=== PATIENT | male | born 1955 | race Caucasian/White ===

== ENCOUNTER 2018-05-03 13:35 | Inpatient (IN) ==
[2018-05-03] MEDS ORDERED: IOPAMIDOL 100 ML BOTTLE IV ONE (13:36)
[2018-05-03] MEDS ORDERED: 0.9 % SODIUM CHLORIDE 1,000 ML IV ONE (14:01)
[2018-05-03] MEDS ORDERED: INSULIN REGULAR, HUMAN 1 UNIT/0.01 ML UNIT IV ONE (14:26)
[2018-05-03] MEDS ORDERED: INSULIN REGULAR, HUMAN 50 UNIT in 0.9 % SODIUM CHLORIDE 99.5 ML IV SCH (15:00)
[2018-05-03 15:11] LABS: Basophils # (Auto) 0 K/mcL (0.0-0.3); Basophils % (Auto) 0 % (0.0-2.0); Eosinophils # (Auto) 0 K/mcL (0.0-0.7); Eosinophils % (Auto) 0.1 % (0.0-7.0); Lymphocytes # (Auto) 1.1 K/mcL (1.5-4.8); Lymphocytes % (Auto) 9.7 % (15.5-49.0); Mean Cell Volume 98.6 fL (80.0-100.0); Mean Corpuscular HGB Conc 32.3 g/dL (31.0-36.0); Mean Corpuscular Hemoglobin 31.8 pg (26.0-34.0); Monocytes # (Auto) 0.5 K/mcL (0.1-0.9); Monocytes % (Auto) 4.2 % (1.0-12.0); Platelet Count 251 K/mcL (140-440); RBC 4.48 M/mcL (4.50-5.90)
[2018-05-03 15:29] LABS: Beta Hydroxybutyrate 0.14 mmol/L (< 0.27)
[2018-05-03 15:41] LABS: ALT/SGPT 24 U/l (0-40); Albumin 3.1 gm/dL (3.2-5.2); Albumin/Globulin Ratio 1.1 (1.0-2.3); Alkaline Phosphatase 208 U/L (39-117); Blood Urea Nitrogen 36 mg/dl (8-23)
[2018-05-03] MEDS: 0.9 % SODIUM CHLORIDE 1,000 ML IV SCH ×2 (15:53→22:47)
[2018-05-03 16:28] LABS: Appearance,Urine CLEAR; Bacteria,Urine 0 /hpf (0); Bilirubin,Urine NEG (NEG); Color,Urine STRAW; Glucose,Urine (UA) >=500 mg/dL (NEG); Leukocyte Esterase,Urine NEG /uL (NEG); Protein,Urine NEG (NEG); Specific Gravity,Urine 1.018 (1.000-1.035); Urine Blood 0.2 mg/dL (<0.03); Urine RBC 2 /hpf (0-1); Urine Squamous Epithelial Cell 0 /hpf (0-4); Urine WBC 5 /hpf (0-4); Urobilinogen,Urine NEG (NEG)
--- NOTE | 2018-05-03 16:46 | Cat Scan Report ---
History: Shortness of breath severe weight loss, weakness and clubbing. TECHNIQUE: The patient was imaged following oral contrast and 50 cc of Isovue-300 contrast intravenously. Portal venous phase images were acquired from the chest through the symphysis pubis. Sagittal, coronal and MIPS images were created. Radiation exposure was limited using dose reduction technology. The patient was hydrated before and after the exam. FINDINGS: CHEST: There is severe reticulation of the lung parenchyma bilaterally with multiple tiny bulla and honeycombing throughout both lungs. The greatest involvement is in the periphery of the lungs, especially in the lung bases. There is significant thickening of the interlobular septa. Interspersed with the honeycombing and septal thickening there are few ill-defined nodular densities which measure up to 4 mm in size. No dominant mass is seen in either lung. There is no lobar consolidation. Traction bronchiectasis is present bilaterally, most apparent in the lower lobes. No intrabronchial lesion is seen. There is no pleural effusion. There are couple lymph nodes in the mediastinum. Largest is located anterior to the malinda and measures 9 x 14 mm. The heart is normal in size. There are couple scattered plaques in the coronary arteries. The aorta is normal caliber and also has mild atherosclerosis. Abdomen and pelvis The liver is mildly heterogeneous and the capsule may be slightly lobulated. No mass is identified within the liver. There is normal opacification of the portal vein. The gallbladder and bile ducts are normal. The spleen is surgically absent. There is significant atrophy of the pancreas. Pancreatic duct is dilated and measures up to 1.2 cm. Numerous coarse calcifications are present in the head and body of the pancreas due to chronic pancreatitis. There is no evidence of acute pancreatitis and no pancreatic neoplasm is seen. The adrenals are normal. There are multiple nonobstructing kidney stones within the calyces bilaterally. Largest is in the upper pole the right kidney and measures 5 x 9 mm. No hydronephrosis is present. There is no evidence of renal mass, cyst or pyelonephritis. Moderate amount calcified plaque is present along the wall of the aorta and iliac arteries. The oral contrast has passed through stomach and small bowel to the distal ileum without obstruction. There is a large amount stool within colon. The colon is not abnormally distended and there is no evidence of diverticulitis.. The urinary bladder is unopacified but grossly normal. The prostate is obscured by beam hardening artifact created by left middle hip prosthesis. There are multiple compression fractures in the thoracic and lumbar spine and the bones are diffusely osteoporotic. IMPRESSION: Severe fibrosis throughout both lungs. The pattern is associated with usual interstitial pneumonia/idiopathic pulmonary fibrosis. Chronic pancreatitis. Multiple bilateral nonobstructing kidney stones Mildly heterogeneous liver. This could be due to early phase imaging before the contrast had equilibrated with liver parenchyma or mild hepatocellular disease such as cirrhosis/hepatitis. Cristiana Lafleur was called with the results Interpreted and Authenticated by: Carloz Mercado 05/03/18
--- NOTE | 2018-05-03 16:47 | Emergency Department Note ---
General Adult HPI - General Chief complaint: Blood Pressure Problem Stated complaint: Low BP, Falls, Near Syncope Time Seen by Provider: 05/03/18 13:39 Source: patient, family Mode of arrival: wheelchair Limitations: no limitations - History of Present Illness HPI Narrative: 63-year-old male presents with generalized weakness, dizziness, and believes he is dehydrated. He has a few episodes of nausea and vomiting yesterday. He continues to be nauseated but has not vomited since yesterday morning. No diarrhea or constipation. No fever or chills. He has lost a considerable amount of weight in the last year and his daughter thinks he is last more in the last month or 2. They also state that he is having an EGD and colonoscopy on May 06 or over at [facility]. They wanted to rule out any kind of cancer due to his weight loss over the last year. He also gets recurrent nausea and vomiting. He did have a CT scan of the chest abdomen and pelvis back in March which showed chronic pancreatitis and kidney stones which were known. He does arrive with a blood sugar reading high today. He states he always runs high because of his chronic pancreatitis but is never usually this high. No cough or cold symptoms. No fever or chills. Associated symptoms: Reports: loss of appetite, malaise, nausea/vomiting, shortness of breath. Denies: chest pain, cough, diaphoresis, fever/chills, headaches, rash, syncope, weakness Treatments Prior to Arrival: none - Related Data Home Medications Medication Instructions Recorded Confirmed Fluticasone/Salmeterol [Advair 1 puff INH DAILY 08/29/15 12/22/16 250-50 Diskus] Insulin Glargine, Human [Lantus] 18 unit SQ DAILY 08/29/15 12/22/16 Celecoxib [Celebrex] 50 mg PO DAILY 12/22/16 12/22/16 Tamsulosin [Flomax] 0.4 mg PO HS 12/22/16 12/22/16 Previous Rx's Medication Instructions Recorded traMADol [Ultram] 50 mg PO Q6HP PRN #15 tablet 11/14/15 Levofloxacin [Levaquin] 750 mg PO DAILY #6 tab 07/22/17 Ondansetron HCl [Zofran ODT] 4 mg SL Q4-6HP PRN #14 tab 12/13/17 Allergies Allergy/AdvReac Type Severity Reaction Status Date / Time codeine Allergy Unknown Rash Verified 11/14/15 16:06 Review of Systems All systems ED: reviewed and negative except as stated. Past Medical History - Past Medical History [facility] Narrative: Medical History Right knee gives way (Acute) Sprain of medial collateral ligament of right knee, initial encounter (Acute) Dehydration (Acute) Medical history: Reports: arthritis, asthma, COPD, DM, other Surgical history ED: Reports: hip replacement, splenectomy - Social History smoking status: Current every day smoker Alcohol use: Reports: None Drug use: Reports: none Physical Exam Limitations: no limitations General appearance: alert, cachectic, other (thin and fragile appearing) Head: atraumatic, normocephalic, normal inspection Eye: Present: normal appearance. Absent: conjunctival injection Neck: Present: normal inspection, trachea midline. Absent: tenderness, lymphadenopathy Chest: Present: symmetric chest wall rise Respiratory: Present: other (dimished bases bilat). Absent: respiratory distress, rales/crackles, accessory muscle use Cardiovascular: Present: regular rate, normal heart sounds Abdominal: Present: soft, normal bowel sounds. Absent: distention, guarding Neurological: Present: alert, oriented X3 Psychiatric: Present: normal affect, normal mood Skin: Present: warm, dry, intact, normal color Course Course Narrative: @ 1704 I spoke with hospitalist Dr. Deng who agrees to accept this patient Vital Signs Temperature 97.0 F 05/03/18 13:37 Pulse Rate 80 05/03/18 13:37 Respiratory Rate 18 05/03/18 13:37 Blood Pressure 97/61 05/03/18 13:37 Pulse Oximetry (%) 97 05/03/18 13:37 Temperature 97.0 F 05/03/18 13:37 Pulse Rate 65 05/03/18 17:01 Respiratory Rate 11 L 05/03/18 17:01 Blood Pressure 121/79 05/03/18 17:01 Pulse Oximetry (%) 98 05/03/18 17:01 Medical Decision Making - Lab Data Lab results reviewed: Yes I reviewed the patient's lab results. Result diagrams: 05/03/18 14:16 05/03/18 14:16 Lab Results 05/03/18 05/03/18 05/03/18 Range/Units 14:15 14:16 14:16 WBC 11.8 H (4.5-11.0) K/mcL RBC 4.48 L (4.50-5.90) M/mcL Hgb 14.3 (13.5-16.5) g/dL Hct 44.2 (41.0-55.0) % POC Hct 46.0 (41.0-55.0) % MCV 98.6 (80.0-100.0) fL MCH 31.8 (26.0-34.0) pg MCHC 32.3 (31.0-36.0) g/dL RDW 13.0 (11.5-14.5) % Plt Count 251 (140-440) K/mcL MPV 9.8 (7.4-10.4) fL Gran % 86.0 H (38.0-78.0) % Lymph % (Auto) 9.7 L (15.5-49.0) % Andrews % (Auto) 4.2 (1.0-12.0) % Eos % (Auto) 0.1 (0.0-7.0) % Baso % (Auto) 0 (0.0-2.0) % Gran # 10.1 H (1.8-8.0) K/mcL Lymph # (Auto) 1.1 L (1.5-4.8) K/mcL Andrews # (Auto) 0.5 (0.1-0.9) K/mcL Eos # (Auto) 0 (0.0-0.7) K/mcL Baso # (Auto) 0 (0.0-0.3) K/mcL VBG Lactic Acid (0.5-2.0) mmol/L POC Sodium 122 L (133-145) mmol/L Sodium 120 L (133-145) mmol/L POC Potassium 5.0 (3.3-5.1) mmol/L Potassium 5.4 H (3.3-5.1) mmol/L POC Chloride 86 L (96-108) mmol/L Chloride 82 L (96-108) mmol/L Carbon Dioxide 21 L (22-30) mmol/L POC Total CO2 22 (22-30) mmol/L Anion Gap 17.0 H (8-16) POC BUN 36 H (8-23) mg/dl BUN 36 H (8-23) mg/dl Creatinine 1.6 H (0.7-1.2) mg/dl POC Creatinine 1.4 H (0.7-1.2) mg/dl GFR Calculation 46 Glucose 1063 H* (70-105) mg/dL POC Glucose > 700 H* (70-105) mg/dL Calcium 8.3 L (8.6-10.4) mg/dl POC WB Ioniz Calcium 1.10 L (1.16-1.32) mmol/L Total Bilirubin 0.3 (0.0-1.0) mg/dL AST 12 (0-37) U/l ALT 24 (0-40) U/l Alkaline Phosphatase 208 H (39-117) U/L Total Protein 5.9 (5.9-8.4) gm/dL Albumin 3.1 L (3.2-5.2) gm/dL Globulin 2.8 (2.2-3.7) gm/dL Albumin/Globulin Ratio 1.1 (1.0-2.3) Beta-Hydroxybutyrate 0.14 (< 0.27) mmol/L Urine Color Urine Appearance Urine pH (5.0-9.0) Ur Specific [place] (1.000-1.035) Urine Protein (NEG) mg/dL Urine Glucose (UA) (NEG) mg/dL Urine Ketones (NEG) mg/dL Urine Occult Blood (<0.03) mg/dL Urine Nitrate (NEG) Urine Bilirubin (NEG) mg/dL Urine Urobilinogen (NEG) mg/dL Ur Leukocyte Esterase (NEG) /uL Urine RBC (0-1) /hpf Urine WBC (0-4) /hpf Ur Squamous Epith Cells (0-4) /hpf Urine Bacteria (0) /hpf Ur Culture Indicated? 05/03/18 05/03/18 Range/Units 14:16 15:45 WBC (4.5-11.0) K/mcL RBC (4.50-5.90) M/mcL Hgb (13.5-16.5) g/dL Hct (41.0-55.0) % POC Hct (41.0-55.0) % MCV (80.0-100.0) fL MCH (26.0-34.0) pg MCHC (31.0-36.0) g/dL RDW (11.5-14.5) % Plt Count (140-440) K/mcL MPV (7.4-10.4) fL Gran % (38.0-78.0) % Lymph % (Auto) (15.5-49.0) % Andrews % (Auto) (1.0-12.0) % Eos % (Auto) (0.0-7.0) % Baso % (Auto) (0.0-2.0) % Gran # (1.8-8.0) K/mcL Lymph # (Auto) (1.5-4.8) K/mcL Andrews # (Auto) (0.1-0.9) K/mcL Eos # (Auto) (0.0-0.7) K/mcL Baso # (Auto) (0.0-0.3) K/mcL VBG Lactic Acid 5.2 H* (0.5-2.0) mmol/L POC Sodium (133-145) mmol/L Sodium (133-145) mmol/L POC Potassium (3.3-5.1) mmol/L Potassium (3.3-5.1) mmol/L POC Chloride (96-108) mmol/L Chloride (96-108) mmol/L Carbon Dioxide (22-30) mmol/L POC Total CO2 (22-30) mmol/L Anion Gap (8-16) POC BUN (8-23) mg/dl BUN (8-23) mg/dl Creatinine (0.7-1.2) mg/dl POC Creatinine (0.7-1.2) mg/dl GFR Calculation Glucose (70-105) mg/dL POC Glucose (70-105) mg/dL Calcium (8.6-10.4) mg/dl POC WB Ioniz Calcium (1.16-1.32) mmol/L Total Bilirubin (0.0-1.0) mg/dL AST (0-37) U/l ALT (0-40) U/l Alkaline Phosphatase (39-117) U/L Total Protein (5.9-8.4) gm/dL Albumin (3.2-5.2) gm/dL Globulin (2.2-3.7) gm/dL Albumin/Globulin Ratio (1.0-2.3) Beta-Hydroxybutyrate (< 0.27) mmol/L Urine Color Straw Urine Appearance Clear Urine pH 6.0 (5.0-9.0) Ur Specific [place] 1.018 (1.000-1.035) Urine Protein Neg (NEG) mg/dL Urine Glucose (UA) >=500 A (NEG) mg/dL Urine Ketones Neg (NEG) mg/dL Urine Occult Blood 0.2 A (<0.03) mg/dL Urine Nitrate Neg (NEG) Urine Bilirubin Neg (NEG) mg/dL Urine Urobilinogen Neg (NEG) mg/dL Ur Leukocyte Esterase Neg (NEG) /uL Urine RBC 2 H (0-1) /hpf Urine WBC 5 H (0-4) /hpf Ur Squamous Epith Cells 0 (0-4) /hpf Urine Bacteria 0 (0) /hpf Ur Culture Indicated? Yes - Radiology Data Radiology results reviewed: Yes I reviewed the patient's radiology results. Disposition Pt seen by [employer]LE[employer] INSTRUCTOR/PA only: No Clinical Impression: Hyperglycemia, Dehydration, Failure to thrive in adult Disposition: Xfer As Inpt ([facility]) Condition: Fair Referrals: Radha Bliss MD [Primary Care Provider] -
--- NOTE | 2018-05-03 17:17 | Internal Med History&Physical ---
Medical - H&P: [facility] Patient information: Note initiated : 05/03/18 at 5:14 pm Service Date, if different from initiated Date: [] Patient: Solomon Mercado a 63 y/o M admitted on for Low BP, Falls, Near Syncope. Chief Complaint: [] Chief complaint: Nausea, Low blood pressure, Dizziness History of present illness: Mr. Mercado is a 63 year old M with a history of smoking/reactive airway disease and DM type II who has been progressively getting weaker and has lost over 40 pounds in the last year. He has been evaluated by his primary care physician without any identifiable cause. He is due for upper and lower endoscopy May 06. However this morning after he woke up he was extremely dizzy weak and subsequently fell down. He struggled for the next 3 hours until he was discovered by his niece and was subsequently [facility]. Initial workup in the ER was significant for blood pressure in 70s along with elevated lactic acid and blood sugar over 1000. Patient was started on insulin drip/crystalloids. Systolics improved to mid 80s. Hospice service was consulted in light of hypovolemic shock. Abdominal imaging was unremarkable except for chronic pancreatitis/bilateral coronary fibrosis/interstitial pneumonia. Hospitalist service was consulted for admission light of above At the time of evaluation patient is accompanied with his significant other and niece. Most of the history is obtained review of medical records and from patient. Solomon is feeling a lot better after fluid boluses. He denies chest pain fever diarrhea, change in stool caliber. Denies lumps or growths on his skin. He denies shortness of breath chest pain productive sputum but endorses to progressive nausea over the last few days. He denies abdominal pain. Review of systems 10 point review system was performed and is negative except one discussed above Medical - H&P: PMH Medical history: DM-II Weight loass C/C pancreatitis AsthmaCOPD Arthritis Surgical history: hip replacement splenectomy Social history: Daily smoker half pack Lives alone Medical - H&P: Meds Home Medications Medication Instructions Recorded Confirmed Type Fluticasone/Salmeterol [Advair 2 puff INH BID 08/29/15 05/03/18 History 250-50 Diskus] traMADol [Ultram] 50 mg PO Q6HP PRN #15 tablet 11/14/15 05/03/18 Rx Celecoxib [Celebrex] 50 mg PO HS 12/22/16 05/03/18 History Tamsulosin [Flomax] 0.4 mg PO HS 12/22/16 05/03/18 History DULoxetine HCL [Cymbalta] 60 mg PO HS 05/03/18 05/03/18 History Gabapentin [Neurontin] 600 mg PO TID 05/03/18 05/03/18 History Allergies Allergy/AdvReac Type Severity Reaction Status Date / Time codeine AdvReac Intermediate Rash Verified 05/04/18 06:12 Medical - H&P: Exam - Constitutional Vitals: Temp Pulse Resp BP Pulse Ox 97.0 F 65 11 L 121/79 98 05/03/18 13:37 05/03/18 17:01 05/03/18 17:01 05/03/18 17:01 05/03/18 17:01 Alert oriented Cachectic Eye movement symmetric Oral cavity dry no ear nose discharge Head normocephalic Neck no lymphadenopathy S1-S2 regular rhythm Diminished breath sounds bases/crackles Abdomen soft nontender Lower 3 no sinus clubbing no joint swelling Skin mild pallor but no suspicious lesion Psych alert cooperative no anxiety Neuro nonfocal moving all 4 extremities, normal heart function General appearance: disheveled, thin Medical - H&P: Reslt - Labs CBC & Chem 7: 05/04/18 05:41 05/04/18 05:41 Labs: Short CBC 05/03/18 Range/Units 14:16 WBC 11.8 H (4.5-11.0) K/mcL Hgb 14.3 (13.5-16.5) g/dL Hct 44.2 (41.0-55.0) % Plt Count 251 (140-440) K/mcL [facility] 05/03/18 14:16 Sodium 120 L Potassium 5.4 H Chloride 82 L Carbon Dioxide 21 L BUN 36 H Creatinine 1.6 H Glucose 1063 H* Calcium 8.3 L Liver Function 05/03/18 Range/Units 14:16 Total Bilirubin 0.3 (0.0-1.0) mg/dL AST 12 (0-37) U/l ALT 24 (0-40) U/l Alkaline Phosphatase 208 H (39-117) U/L Albumin 3.1 L (3.2-5.2) gm/dL Urine 12/03/18 Range/Units 15:45 Urine Color Straw Urine Appearance Clear Urine pH 6.0 (5.0-9.0) Ur Specific [place] 1.018 (1.000-1.035) Urine Protein Neg (NEG) mg/dL Urine Glucose (UA) >=500 A (NEG) mg/dL Medical - H&P: A/P (1) Hypovolemic shock Current visit: Yes Status: Acute * Hypovolemic shock-secondary to volume depletion. Multiple endorgan dysfunction noted. Start aggressive treatment with crystalloid boluses/ pressors as indicated. Admit to ICU * Diabetic hyperosmolar state with early DKA- started on insulin drip. Transition to subcutaneous insulin/diabetic diet once resolved * Hypovolemic hyponatremia-glucose corrected 132 * Acute kidney injury-likely secondary to volume depletion. Follow renal function * Severe cachexia/weight loss-nutrition consult * Neuropathy continue gabapentin * BPH continue tamsulosin * Anxiety disorder continue duloxetine * History of COPD continue Advair * Full code * Prophylaxis heparin Plan * Admit to ICU, inpatient admission in light of hypovolemic shock * Continue aggressive crystalloids * Monitor renal function * Every 6 venous lactate * Prior medical issue management as above * Diabetic diet/nutrition consult Total time spent on history and physical over 70 minutes. In addition over 35 minutes spent on coordinating care/hypovolemic shock management, transferring to ICU and treatment changes over the course of the day
[2018-05-03] MEDS ORDERED: ONDANSETRON 4 MG/2 ML VIAL IV PRN (19:16)
[2018-05-03] MEDS ORDERED: 0.9 % SODIUM CHLORIDE 1,000 ML IV SCH (19:16)
[2018-05-03] MEDS ORDERED: POTASSIUM CHLORIDE 20 MEQ/15 ML ML PT SCH (19:16)
[2018-05-03] MEDS ORDERED: PANTOPRAZOLE 40 MG VIAL IV ONE (19:16)
[2018-05-03] MEDS ORDERED: PROMETHAZINE 25 MG/ML VIAL IV PRN (19:16)
[2018-05-03] MEDS ORDERED: NOREPINEPHRINE BITARTRATE 16 MG in 0.9 % SODIUM CHLORIDE 234 ML IV SCH (19:16)
[2018-05-03] MEDS ORDERED: MAGNESIUM SULFATE 2 GM/50 ML BAG IV PRN (19:16)
[2018-05-03] MEDS ORDERED: ACETAMINOPHEN 325 MG TABLET PO PRN (19:16)
[2018-05-03] MEDS ORDERED: DEXTROSE 31 GM ORAL.SUSP PO PRN (19:16)
[2018-05-03] MEDS ORDERED: DEXTROSE 50% 50 ML VIAL IV PRN (19:16)
[2018-05-03] MEDS ORDERED: ACETAMINOPHEN IV PRN (19:16)
[2018-05-03] MEDS: LACTATED RINGERS 1,000 ML IV SCH (19:38)
[2018-05-03] MEDS: 0.9 % SODIUM CHLORIDE 250 ML IV SCH (19:56)
[2018-05-03 20:50] LABS: C-Reactive Protein < 0.3 mg/dl (0.0-0.8)
[2018-05-03] MEDS: POTASSIUM CHLORIDE 20 MEQ/15 ML ML PO SCH (20:55)
[2018-05-03] MEDS ORDERED: SENNOSIDES/DOCUSATE SODIUM 1 TAB TABLET PO SCH (21:00)
[2018-05-03] MEDS ORDERED: THIAMINE 100 MG in 0.9 % SODIUM CHLORIDE 50 ML IV ONE (21:09)
[2018-05-03] MEDS ORDERED: THIAMINE 100 MG/ML VIAL ONE (21:30)
[2018-05-03] MEDS: INSULIN LISPRO 1 UNIT/0.01 ML UNIT SQ SCH (21:50)
[2018-05-03] MEDS: HEPARIN 5,000 UNIT/ML VIAL SQ SCH (21:51)
[2018-05-03] MEDS: NEUTRA PHOS 1 PACKET PO SCH (21:52)
[2018-05-03] MEDS: DOCUSATE SODIUM 100 MG CAPSULE PO SCH (21:52)
[2018-05-03] MEDS: CYANOCOBALAMIN (VITAMIN B-12) 500 MCG TABLET PO SCH (21:52)
[2018-05-03] MEDS: 0.9 % SODIUM CHLORIDE 10 ML SYRINGE IV SCH (22:44)
[2018-05-03] MEDS ORDERED: HYDROcodone/APAP 5/325MG TABLET PO PRN (22:59)
--- NOTE | 2018-05-04 01:36 | Emergency Department Note ---
ED Note Addendum Note Addendum: I saw this patient with Cristiana SANTO. I agree with her evaluation management documentation. In particular I reviewed this patient's blood sugars and ordered an insulin drip. I recommended admission for DKA
[2018-05-04] MEDS: 0.9 % SODIUM CHLORIDE 10 ML SYRINGE IV SCH ×3 (05:22→22:00)
[2018-05-04 06:29] LABS: Mean Cell Volume 95.3 fL (80.0-100.0); Mean Corpuscular HGB Conc 33.9 g/dL (31.0-36.0); Mean Corpuscular Hemoglobin 32.3 pg (26.0-34.0); Platelet Count 238 K/mcL (140-440); Red Cell Distribution Width 12.9 % (11.5-14.5)
[2018-05-04 06:54] LABS: ALT/SGPT 21 U/l (0-40); Albumin 2.7 gm/dL (3.2-5.2); Alkaline Phosphatase 170 U/L (39-117); Bilirubin,Direct < 0.2 mg/dL (0.0-0.3); Blood Urea Nitrogen 20 mg/dl (8-23); Gamma Glutamyl Transpeptidase 105 U/L (8-61); Uric Acid 4.2 mg/dL (2.5-8.0)
[2018-05-04 07:15] LABS: Hemoglobin A1C 14.7 % HGB (4.0-6.0)
[2018-05-04] MEDS: LACTATED RINGERS 1,000 ML IV SCH ×2 (07:29→17:11)
[2018-05-04] MEDS ORDERED: PANTOPRAZOLE 40 MG VIAL IV SCH (07:30)
[2018-05-04] MEDS: INSULIN LISPRO 1 UNIT/0.01 ML UNIT SQ SCH ×5 (08:01→21:59)
[2018-05-04 08:18] LABS: Eosinophils % (Manual) 1 % (0-7); Lymphocytes % 25 % (15-49); Monocytes % (Manual) 1 % (1-12); Platelet Estimate NORMAL (NORMAL); RBC Morphology NORMAL (NORMAL); Segmented Neutrophils % 73 % (38-78)
[2018-05-04] MEDS: DOCUSATE SODIUM 100 MG CAPSULE PO SCH ×2 (08:27→21:26)
[2018-05-04] MEDS: CYANOCOBALAMIN (VITAMIN B-12) 500 MCG TABLET PO SCH ×2 (08:27→21:24)
[2018-05-04] MEDS: NEUTRA PHOS 1 PACKET PO SCH ×2 (08:28→21:26)
[2018-05-04] MEDS: POTASSIUM CHLORIDE 20 MEQ/15 ML ML PO SCH ×2 (08:28→19:51)
[2018-05-04] MEDS: HEPARIN 5,000 UNIT/ML VIAL SQ SCH ×2 (08:29→21:27)
[2018-05-04] MEDS ORDERED: MULTIVIT,THER IRON,CA,FA & MIN 1 TABLET PO SCH (09:00)
[2018-05-04] MEDS ORDERED: THIAMINE 100 MG in 0.9 % SODIUM CHLORIDE 50 ML IV SCH (09:00)
[2018-05-04] MEDS ORDERED: FOLIC ACID 1 MG TABLET PO SCH (09:00)
--- NOTE | 2018-05-04 10:28 | Internal Med Progress Note ---
Medical - PN: Subj Patient information: Note initiated : 05/04/18 at 10:25 am Service Date, if different from initiated Date: [] Patient: Solomon Mercado a 63 y/o M admitted on 05/03/18 for Low BP, Falls, Near Syncope. Chief Complaint: [] Interval history: Mr. Mercado is a 63 year old M with a history of smoking/reactive airway disease and DM type II who has been progressively getting weaker and has lost over 40 pounds in the last year. He has been evaluated by his primary care physician without any identifiable cause. He is due for upper and lower endoscopy May 06. However this morning after he woke up he was extremely dizzy weak and subsequently fell down. He struggled for the next 3 hours until he was discovered by his niece and was [facility]. Initial workup in the ER was significant for blood pressure in 70s along with elevated lactic acid and blood sugar over 1000. Patient was started on insulin drip/crystalloids. Systolics improved to mid 80s. Hospice service was consulted in light of hypovolemic shock. Abdominal imaging was unremarkable except for chronic pancreatitis/bilateral coronary fibrosis/interstitial pneumonia. 05/04-patient doing remarkably better. Improved nausea. Blood sugars much improved. Now on subcutaneous insulin. Renal function improved with creatinine down at 1 from 1.6. Anion gap resolved. Sodium corrected to 135. Hemodynamically stable. Start diabetic education, transition to medical floor. No overnight fever chills or concerns per staff - Constitutional Vitals: Vital Signs Temp Pulse Resp BP Pulse Ox 99.3 F H 78 20 127/69 100 05/04/18 07:01 05/04/18 07:01 05/04/18 09:01 05/04/18 09:01 05/04/18 09:01 Period Temp Pulse Resp BP Sys/Lugo Pulse Ox Last 24 Hr 97.0 F-99.5 F 62-81 11-27 83-141/59-96 95-100 Intake and Output 05/03/18 05/04/18 05/04/18 21:59 05:59 13:59 Intake Total 3026 / 3026 490 / 490 191 / 1912 Output Total 525 / 525 1050 / 1050 500 / 500 Balance 2501 / 2501 -560 / -560 1412 / 1412 Weight 87 lb 4.8 oz Intake & Output: Intake & Output 05/03/18 05/04/18 05/04/18 21:59 05:59 13:59 Intake Total 3026 / 3026 490 / 490 191 / 1912 Output Total 525 / 525 1050 / 1050 500 / 500 Balance 2501 / 2501 -560 / -560 1412 / 1412 Weight 87 lb 4.8 oz Intake: IV 3026 / 3026 1112 / 1112 Sodium Chloride 0.9% 1,000 ml @ 3000 / 3000 Wide Open IV BOLUS TOMMY Rx#: [id number] HumuLIN R 50 UNIT In Sodium 8 / 8 Chloride 0.9% 99.5 ml @ 3 UNIT/ HR 6 mls/hr IV DUR TOMMY Rx#: [id number] Lactated Ringers 1,000 ml @ 100 1062 / 1062 mls/hr IV .Q10H TOMMY Rx#: [id number] Oral 390 / 390 800 / 800 IV - Manual Only 100 / 100 Output: Void Amount 525 / 525 1050 / 1050 500 / 500 Other: Meal snack Breakfast Percent of Meal Consumed 100% 100% Feeding Ability Assist with Tray Set Up Independent Urine Appearance Clear Clear Clear Urine Color Bright Yellow Bright Yellow Pale Urine Odor Normal General appearance: no acute distress Exam: Cachectic nonlabored breathing Nondistended abdomen No anxiety Medical - PN: Obj Da - Labs CBC & Chem 7: 05/04/18 05:41 05/04/18 05:41 Labs: Abnormal Lab Results 05/04/18 05/04/18 05/04/18 05:41 05:41 05:41 WBC 11.1 H RBC 4.00 L Hgb 12.9 L Hct 38.1 L Gran % Lymph % (Auto) Gran # Lymph # (Auto) VBG Lactic Acid POC Sodium Sodium Potassium POC Chloride Chloride Carbon Dioxide Anion Gap 7.0 L POC BUN BUN Creatinine POC Creatinine Glucose 176 H POC Glucose Hemoglobin A1c 14.7 H Calcium 7.7 L POC WB Ioniz Calcium GGT 105 H Alkaline Phosphatase 170 H Total Protein 5.3 L Albumin 2.7 L Urine Glucose (UA) Urine Occult Blood Urine RBC Urine WBC 05/04/18 05/03/18 05/03/18 00:08 15:45 14:16 WBC RBC Hgb Hct Gran % Lymph % (Auto) Gran # Lymph # (Auto) VBG Lactic Acid 3.3 H 5.2 H* POC Sodium Sodium Potassium POC Chloride Chloride Carbon Dioxide Anion Gap POC BUN BUN Creatinine POC Creatinine Glucose POC Glucose Hemoglobin A1c Calcium POC WB Ioniz Calcium GGT Alkaline Phosphatase Total Protein Albumin Urine Glucose (UA) >=500 A Urine Occult Blood 0.2 A Urine RBC 2 H Urine WBC 5 H 05/03/18 05/03/18 14:16 14:16 WBC 11.8 H RBC 4.48 L Hgb Hct Gran % 86.0 H Lymph % (Auto) 9.7 L Gran # 10.1 H Lymph # (Auto) 1.1 L VBG Lactic Acid POC Sodium 122 L Sodium 120 L Potassium 5.4 H POC Chloride 86 L Chloride 82 L Carbon Dioxide 21 L Anion Gap 17.0 H POC BUN 36 H BUN 36 H Creatinine 1.6 H POC Creatinine 1.4 H Glucose 1063 H* POC Glucose > 700 H* Hemoglobin A1c Calcium 8.3 L POC WB Ioniz Calcium 1.10 L GGT Alkaline Phosphatase 208 H Total Protein Albumin 3.1 L Urine Glucose (UA) Urine Occult Blood Urine RBC Urine WBC Meds: Medications Acetaminophen (Tylenol) 650 mg PO Q4-6HP PRN PRN Reason: PAIN/FEVER > 101 Hydrocodone Bitart/Acetaminophen ([place] 5/325mg) 1 tab PO Q4-6HP PRN PRN Reason: PAIN LEVEL 3-6 Cyanocobalamin (Vitamin B-12) 1,000 mcg PO BID [facility] Stop: 05/08/18 09:01 Last Admin: 05/04/18 08:27 Dose: 1,000 mcg Dextrose (Dextrose 50%) 0 ml IV UD PRN PRN Reason: Hypoglycemia Diagnostic Test (Pha) (Accu-Chek) 1 each FS ACHS [facility] Last Admin: 05/04/18 07:36 Dose: 1 each Docusate Sodium (Colace) 100 mg PO BID [facility] Last Admin: 05/04/18 08:27 Dose: 100 mg Folic Acid (Folic Acid) 1 mg PO DAILY [facility] Last Admin: 05/04/18 08:23 Dose: 1 mg Glucose (Insta-Glucose) 15 gm PO PRN PRN PRN Reason: Hypoglycemia Heparin Sodium (Porcine) (Heparin) 5,000 unit SQ Q12 [facility] Last Admin: 05/04/18 08:29 Dose: 5,000 unit Lactated Ringer's (Lactated Ringers) 1,000 mls @ 100 mls/hr IV .Q10H [facility] Stop: 05/05/18 01:15 Last Infusion: 05/04/18 09:35 Dose: 100 mls/hr Magnesium Sulfate (Magnesium Sulfate) 2 gm in 50 mls @ 50 mls/hr IV UD PRN PRN Reason: Mag < or = 1.7 Last Infusion: 05/04/18 09:35 Dose: Infused Sodium Chloride (Sodium Chloride 0.9%) 1,000 mls @ 0 mls/hr IV BOLUS [facility] Last Infusion: 05/03/18 21:55 Dose: Infused Acetaminophen (Ofirmev) 550 mg in 55 mls @ 110 mls/hr IV Q6HP PRN PRN Reason: PAIN/FEVER > 101 Thiamine HCl 100 mg/ Sodium (Chloride) 51 mls @ 50 mls/hr IV DAILY [facility] Stop: 05/06/18 10:02 Norepinephrine Bitartrate 16 (mg/ Sodium Chloride) 250 mls @ 9.37 mls/hr IV Q24H [facility]; Protocol Last Admin: 05/03/18 19:56 Dose: Not Given Sodium Chloride (Sodium Chloride 0.9%) 250 mls @ 20 mls/hr IV .[id number] [facility] Last Admin: 05/03/18 19:56 Dose: Not Given Insulin Human Lispro (Humalog) 0 unit SQ ACHS [facility]; Protocol Last Admin: 05/04/18 08:01 Dose: 1 unit Iron Carb/Multivit/[place]/Folic Acid (Multivitamin W/Minerals) 1 tab PO DAILY [facility] Last Admin: 05/04/18 08:27 Dose: 1 tab Morphine Sulfate (Morphine) 1 mg IV Q6HP PRN PRN Reason: PAIN LEVEL > 6 Ondansetron HCl (Zofran) 4 mg IV Q4-6HP PRN PRN Reason: Nausea And Vomiting Pantoprazole Sodium (Protonix) 40 mg IV QAMAC [facility] Last Admin: 05/04/18 07:50 Dose: 40 mg [facility]assium [facility] ([facility]) [facility] Last Admin: 05/04/18 08:28 Dose: 15 meq Potassium/Phosphorus/Sodium (Neutra Phos) 2 packet PO BID [facility] Last Admin: 05/04/18 08:28 Dose: 2 packet Promethazine HCl (Phenergan) 6.25 mg IV Q4-6HP PRN PRN Reason: Nausea And Vomiting Senna/Docusate Sodium (Senna Plus Tablet) 1 tab PO HS [facility] Last Admin: 05/03/18 21:52 Dose: 1 tab Sodium Chloride (Saline Flush) 10 ml IV Q8 [facility] Last Admin: 05/04/18 05:22 Dose: Not Given Medical - PN: A/P - Time Spent With Patient Total time spent is greater than 50% in coordination of care (as documented) at patient's floor/unit and/or counseling patient: 25 - 35 minutes (1) Hypovolemic shock Status: Acute Assessment and plan: * Hypovolemic shock-secondary to volume depletion. Clinically resolved with multiple crystalloid challenge. Lactate normalized. Transition to medical floor. * Diabetic hyperosmolar state with early DKA-clinically resolved. Currently on subcutaneous insulin. Start diabetic education/diabetic diet * Hypovolemic hyponatremia-improved * Acute kidney injury-likely secondary to volume depletion. Resolved. Creatinine down from 1.6-1 * Severe cachexia/weight loss-nutrition consult/protein calorie supplements * Neuropathy continue gabapentin * BPH continue tamsulosin * Anxiety disorder continue duloxetine * History of COPD continue Advair * Full code * Prophylaxis heparin Plan * transfer to medical floor * Prior medical issue management as above * Diabetic diet/education * Nutrition support * Aggressive PT OT Current Visit: Yes Medical - PN: Qual - VTE Deep Vein Thrombosis/Pulmonary Embolism Present on Admission: No
[2018-05-04] MEDS: 0.9 % SODIUM CHLORIDE 250 ML IV SCH ×2 (11:07→17:12)
[2018-05-04] MEDS ORDERED: 0.9 % SODIUM CHLORIDE 1,000 ML IV SCH (16:46)
[2018-05-04] MEDS ORDERED: PROMETHAZINE 25 MG/ML VIAL IV PRN (16:46)
[2018-05-04] MEDS ORDERED: DEXTROSE 31 GM ORAL.SUSP PO PRN (16:46)
[2018-05-04] MEDS ORDERED: DEXTROSE 50% 50 ML VIAL IV PRN (16:46)
[2018-05-04] MEDS ORDERED: ACETAMINOPHEN IV PRN (16:46)
[2018-05-04] MEDS ORDERED: MAGNESIUM SULFATE 2 GM/50 ML BAG IV PRN (16:46)
[2018-05-04] MEDS ORDERED: ACETAMINOPHEN 325 MG TABLET PO PRN (16:46)
[2018-05-04] MEDS ORDERED: LACTATED RINGERS 1,000 ML IV SCH ×2 (16:46→17:30)
[2018-05-04] MEDS ORDERED: HYDROcodone/APAP 5/325MG TABLET PO PRN (16:46)
[2018-05-04] MEDS ORDERED: ONDANSETRON 4 MG/2 ML VIAL IV PRN (16:46)
[2018-05-04] MEDS: SENNOSIDES/DOCUSATE SODIUM 1 TAB TABLET PO SCH (21:25)
[2018-05-05 05:59] LABS: Mean Cell Volume 95.7 fL (80.0-100.0); Mean Corpuscular HGB Conc 33.3 g/dL (31.0-36.0); Mean Corpuscular Hemoglobin 31.9 pg (26.0-34.0); Platelet Count 251 K/mcL (140-440); RBC 4.18 M/mcL (4.50-5.90)
[2018-05-05 06:13] LABS: ALT/SGPT 26 U/l (0-40); Albumin 2.8 gm/dL (3.2-5.2); Alkaline Phosphatase 181 U/L (39-117); Bilirubin,Direct < 0.2 mg/dL (0.0-0.3); Blood Urea Nitrogen 15 mg/dl (8-23); Gamma Glutamyl Transpeptidase 121 U/L (8-61); Uric Acid 3.6 mg/dL (2.5-8.0)
[2018-05-05] MEDS: 0.9 % SODIUM CHLORIDE 250 ML IV SCH ×3 (06:20→21:12)
[2018-05-05] MEDS: 0.9 % SODIUM CHLORIDE 10 ML SYRINGE IV SCH ×3 (06:20→21:18)
[2018-05-05] MEDS: INSULIN LISPRO 1 UNIT/0.01 ML UNIT SQ SCH ×4 (06:41→21:16)
[2018-05-05 07:25] LABS: Eosinophils % (Manual) 1 % (0-7); Lymphocytes % 30 % (15-49); Monocytes % (Manual) 5 % (1-12); Platelet Estimate NORMAL (NORMAL); RBC Morphology NORMAL (NORMAL); Segmented Neutrophils % 64 % (38-78)
[2018-05-05] MEDS ORDERED: PANTOPRAZOLE 40 MG VIAL IV SCH (07:30)
[2018-05-05] MEDS: NEUTRA PHOS 1 PACKET PO SCH ×2 (08:04→21:17)
[2018-05-05] MEDS: CYANOCOBALAMIN (VITAMIN B-12) 500 MCG TABLET PO SCH ×2 (08:04→21:23)
[2018-05-05] MEDS: POTASSIUM CHLORIDE 20 MEQ/15 ML ML PO SCH ×2 (08:05→16:51)
[2018-05-05] MEDS: MULTIVIT,THER IRON,CA,FA & MIN 1 TABLET PO SCH (08:06)
[2018-05-05] MEDS: DOCUSATE SODIUM 100 MG CAPSULE PO SCH ×2 (08:06→21:18)
[2018-05-05] MEDS: FOLIC ACID 1 MG TABLET PO SCH (08:06)
[2018-05-05] MEDS: HEPARIN 5,000 UNIT/ML VIAL SQ SCH ×2 (08:06→21:16)
[2018-05-05] MEDS ORDERED: THIAMINE 100 MG in 0.9 % SODIUM CHLORIDE 50 ML IV SCH (09:00)
[2018-05-05] MEDS: FLUTICASONE/SALMETEROL 250/50 INHALER #14 INH SCH ×2 (10:02→21:18)
[2018-05-05] MEDS: GABAPENTIN 300 MG CAPSULE PO SCH ×2 (10:03→21:16)
--- NOTE | 2018-05-05 11:46 | Internal Med Progress Note ---
Medical - PN: Subj Patient information: Note initiated : 05/05/18 at 11:43 am Service Date, if different from initiated Date: [] Patient: Solomon Mercado a 63 y/o M admitted on 05/03/18 for Low BP, Falls, Near Syncope. Chief Complaint: [] Interval history: Mr. Mercado is a 63 year old M with a history of smoking/reactive airway disease and DM type II who has been progressively getting weaker and has lost over 40 pounds in the last year. He has been evaluated by his primary care physician without any identifiable cause. He is due for upper and lower endoscopy May 06. However this morning after he woke up he was extremely dizzy weak and subsequently fell down. He struggled for the next 3 hours until he was discovered by his niece and [facility] Initial workup in the ER was significant for blood pressure in 70s along with elevated lactic acid and blood sugar over 1000. Patient was started on insulin drip/crystalloids. Systolics improved to mid 80s. Hospice service was consulted in light of hypovolemic shock. Abdominal imaging was unremarkable except for chronic pancreatitis/bilateral coronary fibrosis/interstitial pneumonia. 05/04-patient doing remarkably better. Improved nausea. Blood sugars much improved. Now on subcutaneous insulin. Renal function improved with creatinine down at 1 from 1.6. Anion gap resolved. Sodium corrected to 135. Hemodynamically stable. Start diabetic education, transition to medical floor. No overnight fever chills or concerns per staff 05/05-patient doing well. No overnight events. No concerns staff. No further nausea vomiting. Good appetite. Ambulating. Possible discharge in 24 hours. Patient was scheduled for upper and lower endoscopy at [facility] as an outpatient however was unable to make it due to hospitalization. clerk secretary was requested to reschedule in 2 weeks. Labs normalized. - Constitutional Vitals: Vital Signs Temp Pulse Resp BP Pulse Ox 98.4 F 84 16 118/78 93 05/05/18 06:47 05/05/18 04:41 05/05/18 06:50 05/05/18 06:50 05/05/18 06:47 Period Temp Pulse Resp BP Sys/Lugo Pulse Ox Last 24 Hr 97.7 F-100.0 F 68-88 13-24 118-133/68-87 93-100 Intake and Output 05/04/18 05/05/18 05/05/18 21:59 05:59 13:59 Intake Total 1475 / 1475 840 / 840 Output Total 2175 / 2175 1225 / 1225 750 / 750 Balance -700 / -700 -1225 / -1225 90 / 90 Weight 91 lb 4.8 oz Intake & Output: Intake & Output 05/04/18 05/05/18 05/05/18 21:59 05:59 13:59 Intake Total 1475 / 1475 840 / 840 Output Total 2175 / 2175 1225 / 1225 750 / 750 Balance -700 / -700 -1225 / -1225 90 / 90 Weight 91 lb 4.8 oz Intake: IV 755 / 755 Oral 720 / 720 840 / 840 Output: Urine Catheter Amount 600 / 600 Void Amount 1575 / 1575 1225 / 1225 750 / 750 Other: Meal Breakfast Percent of Meal Consumed 100% Urine Appearance Clear Urine Color Pale Urine Odor Normal # Voids 1 # Bowel Movements 1 General appearance: no acute distress Exam: Alert oriented nonlabored breathing Nondistended abdomen No anxiety Medical - PN: Obj Da - Labs CBC & Chem 7: 05/05/18 04:38 05/05/18 04:38 Labs: Abnormal Lab Results 05/05/18 05/05/18 05/04/18 04:38 04:38 05:41 WBC 11.9 H RBC 4.18 L Hgb 13.3 L Hct 40.0 L Gran % Lymph % (Auto) Gran # Lymph # (Auto) VBG Lactic Acid POC Sodium Sodium Potassium POC Chloride Chloride Carbon Dioxide Anion Gap POC BUN BUN Creatinine POC Creatinine Glucose 113 H POC Glucose Hemoglobin A1c 14.7 H Calcium 8.1 L POC WB Ioniz Calcium GGT 121 H Alkaline Phosphatase 181 H Total Protein 5.6 L Albumin 2.8 L Urine Glucose (UA) Urine Occult Blood Urine RBC Urine WBC 05/04/18 05/04/18 05/04/18 05:41 05:41 00:08 WBC 11.1 H RBC 4.00 L Hgb 12.9 L Hct 38.1 L Gran % Lymph % (Auto) Gran # Lymph # (Auto) VBG Lactic Acid 3.3 H POC Sodium Sodium Potassium POC Chloride Chloride Carbon Dioxide Anion Gap 7.0 L POC BUN BUN Creatinine POC Creatinine Glucose 176 H POC Glucose Hemoglobin A1c Calcium 7.7 L POC WB Ioniz Calcium GGT 105 H Alkaline Phosphatase 170 H Total Protein 5.3 L Albumin 2.7 L Urine Glucose (UA) Urine Occult Blood Urine RBC Urine WBC 05/03/18 05/03/18 05/03/18 15:45 14:16 14:16 WBC RBC Hgb Hct Gran % Lymph % (Auto) Gran # Lymph # (Auto) VBG Lactic Acid 5.2 H* POC Sodium 122 L Sodium 120 L Potassium 5.4 H POC Chloride 86 L Chloride 82 L Carbon Dioxide 21 L Anion Gap 17.0 H POC BUN 36 H BUN 36 H Creatinine 1.6 H POC Creatinine 1.4 H Glucose 1063 H* POC Glucose > 700 H* Hemoglobin A1c Calcium 8.3 L POC WB Ioniz Calcium 1.10 L GGT Alkaline Phosphatase 208 H Total Protein Albumin 3.1 L Urine Glucose (UA) >=500 A Urine Occult Blood 0.2 A Urine RBC 2 H Urine WBC 5 H 05/03/18 14:16 WBC 11.8 H RBC 4.48 L Hgb Hct Gran % 86.0 H Lymph % (Auto) 9.7 L Gran # 10.1 H Lymph # (Auto) 1.1 L VBG Lactic Acid POC Sodium Sodium Potassium POC Chloride Chloride Carbon Dioxide Anion Gap POC BUN BUN Creatinine POC Creatinine Glucose POC Glucose Hemoglobin A1c Calcium POC WB Ioniz Calcium GGT Alkaline Phosphatase Total Protein Albumin Urine Glucose (UA) Urine Occult Blood Urine RBC Urine WBC Meds: Medications Acetaminophen (Tylenol) 650 mg PO Q4-6HP PRN PRN Reason: PAIN/FEVER > 101 Hydrocodone Bitart/Acetaminophen ([place] 5/325mg) 1 tab PO Q4-6HP PRN PRN Reason: PAIN LEVEL 3-6 Cyanocobalamin (Vitamin B-12) 1,000 mcg PO BID [facility] Stop: 05/08/18 09:01 Last Admin: 05/05/18 08:04 Dose: 1,000 mcg Dextrose (Dextrose 50%) 0 ml IV UD PRN PRN Reason: Hypoglycemia Diagnostic Test (Pha) (Accu-Chek) 1 each FS ACHS [facility] Last Admin: 05/05/18 11:25 Dose: 1 each Docusate Sodium (Colace) 100 mg PO BID [facility] Last Admin: 05/05/18 08:06 Dose: 100 mg Duloxetine HCl (Cymbalta) 60 mg PO [facility] Folic Acid (Folic Acid) 1 mg PO DAILY [facility] Last Admin: 05/05/18 08:06 Dose: 1 mg Gabapentin (Neurontin) 600 mg PO BID [facility] Last Admin: 05/05/18 10:03 Dose: 600 mg Glucose (Insta-Glucose) 15 gm PO PRN PRN PRN Reason: Hypoglycemia Heparin Sodium (Porcine) (Heparin) 5,000 unit SQ Q12 [facility] Last Admin: 05/05/18 08:06 Dose: 5,000 unit Magnesium Sulfate (Magnesium Sulfate) 2 gm in 50 mls @ 50 mls/hr IV UD PRN PRN Reason: Mag < or = 1.7 Acetaminophen (Ofirmev) 550 mg in 55 mls @ 110 mls/hr IV Q6HP PRN PRN Reason: PAIN/FEVER > 101 Sodium Chloride (Sodium Chloride 0.9%) 250 mls @ 20 mls/hr IV .[id number] [facility] Last Admin: 05/05/18 06:20 Dose: 20 mls/hr Insulin Human Lispro (Humalog) 0 unit SQ ACHS [facility]; Protocol Last Admin: 05/05/18 11:32 Dose: 6 units Iron Carb/Multivit/Fur Polisher/Folic Acid (Multivitamin W/Minerals) 1 tab PO DAILY [facility] Last Admin: 05/05/18 08:06 Dose: 1 tab Morphine Sulfate (Morphine) 1 mg IV Q6HP PRN PRN Reason: PAIN LEVEL > 6 Ondansetron HCl (Zofran) 4 mg IV Q4-6HP PRN PRN Reason: Nausea And Vomiting Pantoprazole [facility]odium (Protonix) [facility] Potassium Chloride (Potassium Chloride) [facility] Last Admin: 05/05/18 08:05 Dose: 15 meq Potassium/Phosphorus/Sodium (Neutra Phos) 2 packet PO BID [facility] Last Admin: 05/05/18 08:04 Dose: 2 packet Promethazine HCl (Phenergan) 6.25 mg IV Q4-6HP PRN PRN Reason: Nausea And Vomiting Fluticasone/Salmeterol (Advair 250-50 Diskus) 2 puff INH BID [facility] Last Admin: 05/05/18 10:02 Dose: Not Given Senna/Docusate Sodium (Senna Plus Tablet) 1 tab PO [facility] Last Admin: 05/04/18 21:25 Dose: 1 tab Sodium Chloride (Saline Flush) 10 ml IV Q8 [facility] Last Admin: 05/05/18 06:20 Dose: Not Given Tamsulosin HCl (Flomax) 0.4 mg PO HS [facility] Thiamine HCl (Vitamin B1) 100 mg PO DAILY [facility] Stop: 05/06/18 09:01 Medical - PN: A/P - Time Spent With Patient Total time spent is greater than 50% in coordination of care (as documented) at patient's floor/unit and/or counseling patient: 15 - 24 minutes (1) Hypovolemic shock Status: Acute Assessment and plan: * Hypovolemic shock-secondary to volume depletion. Clinically resolved * Diabetic hyperosmolar state with early DKA-clinically resolved. Currently on subcutaneous insulin. Continue diabetic education/diabetic diet * Hypovolemic hyponatremia-resolved 1 * Severe cachexia/weight loss-Continue nutrition support/protein calorie supplements * Acute kidney injury-likely secondary to volume depletion. Resolved. * Neuropathy continue gabapentin * BPH continue tamsulosin * Anxiety disorder continue duloxetine * History of COPD continue Advair * Full code * Prophylaxis heparin Plan * Diabetic diet/education * continue nutrition support/ PT OT * OP upper and lower endoscopy to be scheduled in 2 weeks at [place] * Possible discharge in 24 hours Current Visit: Yes Medical - PN: Qual - VTE Deep Vein Thrombosis/Pulmonary Embolism Present on Admission: No
[2018-05-05] MEDS ORDERED: DULoxetine 30 MG CAPSULE PO SCH (21:00)
[2018-05-05] MEDS ORDERED: TAMSULOSIN 0.4 MG CAPSULE PO SCH (21:00)
[2018-05-05] MEDS: SENNOSIDES/DOCUSATE SODIUM 1 TAB TABLET PO SCH (21:18)
[2018-05-06 06:05] LABS: Mean Cell Volume 96.2 fL (80.0-100.0); Mean Corpuscular HGB Conc 33.2 g/dL (31.0-36.0); Mean Corpuscular Hemoglobin 31.9 pg (26.0-34.0); Platelet Count 262 K/mcL (140-440); RBC 4.21 M/mcL (4.50-5.90); Red Cell Distribution Width 13.1 % (11.5-14.5)
[2018-05-06 06:20] LABS: ALT/SGPT 26 U/l (0-40); Albumin 2.8 gm/dL (3.2-5.2); Alkaline Phosphatase 179 U/L (39-117); Bilirubin,Direct < 0.2 mg/dL (0.0-0.3); Blood Urea Nitrogen 20 mg/dl (8-23); Gamma Glutamyl Transpeptidase 118 U/L (8-61); Uric Acid 3.5 mg/dL (2.5-8.0)
[2018-05-06 06:38] LABS: Band Neutrophils % 1 % (0-10); Eosinophils % (Manual) 3 % (0-7); Howell-Jolly Bodies FEW (NONE SEEN); Lymphocytes % 35 % (15-49); Monocytes % (Manual) 5 % (1-12); Platelet Estimate NORMAL (NORMAL); RBC Morphology ABNORM (NORMAL); Segmented Neutrophils % 52 % (38-78)
[2018-05-06] MEDS ORDERED: PANTOPRAZOLE 40 MG TABLET PO SCH (07:30)
[2018-05-06] MEDS: INSULIN LISPRO 1 UNIT/0.01 ML UNIT SQ SCH ×2 (08:10→11:58)
[2018-05-06] MEDS ORDERED: THIAMINE 100 MG TABLET PO SCH (09:00)
[2018-05-06] MEDS: MULTIVIT,THER IRON,CA,FA & MIN 1 TABLET PO SCH (09:32)
[2018-05-06] MEDS: POTASSIUM CHLORIDE 20 MEQ/15 ML ML PO SCH (09:32)
[2018-05-06] MEDS: HEPARIN 5,000 UNIT/ML VIAL SQ SCH (09:32)
[2018-05-06] MEDS: DOCUSATE SODIUM 100 MG CAPSULE PO SCH (09:33)
[2018-05-06] MEDS: 0.9 % SODIUM CHLORIDE 10 ML SYRINGE IV SCH (09:33)
[2018-05-06] MEDS: GABAPENTIN 300 MG CAPSULE PO SCH (09:33)
[2018-05-06] MEDS: FOLIC ACID 1 MG TABLET PO SCH (09:33)
[2018-05-06] MEDS: CYANOCOBALAMIN (VITAMIN B-12) 500 MCG TABLET PO SCH (09:33)
[2018-05-06] MEDS: NEUTRA PHOS 1 PACKET PO SCH (09:35)
[2018-05-06] MEDS: FLUTICASONE/SALMETEROL 250/50 INHALER #14 INH SCH (09:35)
[2018-05-06] MEDS: 0.9 % SODIUM CHLORIDE 250 ML IV SCH (09:36)
--- NOTE | 2018-05-06 10:39 | Discharge Summary ---
Medical - DS: Prov Patient information: Note initiated : 05/06/18 at 10:37 am Service Date, if different from initiated Date: [] Patient: Solomon Mercado 63 y/o M admitted on 05/03/18 for Low BP, Falls, Near Syncope. Chief Complaint: [] Date of admission: 05/03/18 19:07 Discharge date: 05/06/18 Primary care physician: Radha Bliss Consults: 05/03/18 Consult to Physician [CONS] Stat Comment: Consulting Provider: Andre Deng Reason For Exam: Physician to Consult Medical - DS: Meds - Discharge Medications Prescriptions: Insulin Glargine, Human [Lantus] 10 unit SQ DAILY #30 ml metFORMIN HCL [Metformin HCl ER] 500 mg PO DAILY #30 tab.er.24 Active and Home Medications: Home Medications Fluticasone/Salmeterol [Advair 250-50 Diskus] 2 puff INH BID 08/29/15 [History Confirmed 05/03/18 Last Taken 05/03/18 12:00] traMADol [Ultram] 50 mg PO Q6HP PRN #15 tablet 11/14/15 [Rx Confirmed 05/03/18 Last Taken 05/02/18 21:00] Celecoxib [Celebrex] 50 mg PO HS 12/22/16 [History Confirmed 05/03/18 Last Taken 05/02/18 21:00] Tamsulosin [Flomax] 0.4 mg PO HS 12/22/16 [History Confirmed 05/03/18 Last Taken 05/02/18 21:00] DULoxetine HCL [Cymbalta] 60 mg PO HS 05/03/18 [History Confirmed 05/03/18 Last Taken 05/02/18 21:00] Gabapentin [Neurontin] 600 mg PO TID 05/03/18 [History Confirmed 05/03/18 Last Taken 05/02/18 21:00] Insulin Glargine, Human [Lantus] 10 unit SQ DAILY #30 ml 05/06/18 [Rx Last Taken Unknown] metFORMIN HCL [Metformin HCl ER] 500 mg PO DAILY #30 tab.er.24 05/06/18 [Rx Last Taken Unknown] Medical - DS: Hosp Hospital course: Discharge diagnosis * Hypovolemic shock-secondary to volume depletion. Clinically resolved * Diabetic hyperosmolar state with early DKA-clinically resolved. Started on metformin/Lantus. Continue diabetic education as outpatient along with diabetic diet * Hypovolemic hyponatremia-resolved * Severe cachexia/weight loss-Continue diet per global manager as outpatient * Acute kidney injury-likely secondary to volume depletion. Resolved. * Neuropathy stable on gabapentin * BPH continue tamsulosin * Anxiety disorder continue duloxetine * History of COPD continue Advair Brief hospital course Mr. Mercado is a 63 year old M with a history of smoking/reactive airway disease and DM type II who has been progressively getting weaker and has lost over 40 pounds in the last year. He has been evaluated by his primary care physician without any identifiable cause. He is due for upper and lower endoscopy May 06. However this morning after he woke up he was extremely dizzy weak and subsequently fell down. He struggled for the next 3 hours until he was discovered by his niece and was subsequently brought into [place] ER. Initial workup in the ER was significant for blood pressure in 70s along with elevated lactic acid and blood sugar over 1000. Patient was started on insulin drip/crystalloids. Systolics improved to mid 80s. Hospice service was consulted in light of hypovolemic shock. Abdominal imaging was unremarkable except for chronic pancreatitis/bilateral coronary fibrosis/interstitial pneumonia. 05/04-patient doing remarkably better. Improved nausea. Blood sugars much improved. Now on subcutaneous insulin. Renal function improved with creatinine down at 1 from 1.6. Anion gap resolved. Sodium corrected to 135. Hemodynamically stable. Start diabetic education, transition to medical floor. No overnight fever chills or concerns per staff 05/05-patient doing well. No overnight events. No concerns staff. No further nausea vomiting. Good appetite. Ambulating. Possible discharge in 24 hours. Patient was scheduled for upper and lower endoscopy at [place] today as an outpatient however was unable to make it due to hospitalization. corporation secretary was requested to reschedule in 2 weeks. Labs normalized. 05/06-patient doing well. Much improved clinically. Ongoing diabetic education. Started on Lantus 10 daily. We will follow-up primary care physician along with continued home health services. Patient was educated on blood sugar control ( A1c 14.7 is reflective of extremely poor outpatient control) He is being discharged with home health with instructions as below Discharge diagnosis: . - Time Spent with Patient Total time spent providing and/or coordinating discharge services: Greater than 30 minutes Medical - DS: Exam - Constitutional Vitals: Vital Signs Temp Pulse Resp BP BP Pulse Ox 05/06/18 06:58 98.5 F 87 16 125/71 93 05/06/18 03:25 98.0 F 90 16 104/68 93 05/05/18 23:45 99.6 F H 96 H 14 124/68 94 05/05/18 20:10 98.8 F 73 14 138/80 95 05/05/18 15:45 97.9 F 74 16 126/70 93 05/05/18 11:52 97.9 F 20 124/76 95 Intake and Output 05/05/18 05/06/18 05/06/18 21:59 05:59 13:59 Intake Total 1090 / 1090 390 / 390 Output Total 700 / 700 500 / 500 Balance 390 / 390 -110 / -110 Intake: IV 250 / 250 Sodium Chloride 0.9% 250 ml @ 250 / 250 20 mls/hr IV .[id number] [facility] Rx#: [id number] Oral 840 / 840 390 / 390 Output: Void Amount 700 / 700 500 / 500 Other: Meal Dinner ceral w/milk Percent of Meal Consumed 100% 100% Feeding Ability Independent Urine Appearance Clear Clear Urine Color Pale Straw Urine Odor Normal Stool Size Large Stool Color Brown Stool Consistency Soft # Voids 1 Weight 97 lb 6.4 oz Medical - DS: Data Labs on day of discharge: Labs from last 24 hours 05/06/18 05/06/18 04:32 04:32 WBC 11.4 H RBC 4.21 L Hgb 13.4 L Hct 40.5 L MCV 96.2 MCH 31.9 MCHC 33.2 RDW 13.1 Plt Count 262 MPV 9.5 Total Counted 100 Seg Neutrophils % 52 Band Neutrophils % 1 Lymphocytes % 35 Monocytes % (Manual) 5 Eosinophils % (Manual) 3 Reactive Lymphocytes 4 H Platelet Estimate Normal RBC Morphology Abnorm A [place] Bodies Few A Sodium 137 Potassium 4.8 Chloride 103 Carbon Dioxide 24 Anion Gap 10.0 BUN 20 Creatinine 1.1 GFR Calculation 72 Glucose 249 H Uric Acid 3.5 Calcium 8.2 L Phosphorus 4.2 Magnesium 2.0 Total Bilirubin 0.2 Direct Bilirubin < 0.2 GGT 118 H AST 21 ALT 26 Alkaline Phosphatase 179 H Lactate Dehydrogenase 122 Total Protein 5.7 L Albumin 2.8 L Globulin 2.9 Albumin/Globulin Ratio 1.0 Triglycerides 89 Medical - DS: A/P - Patient/Caregiver Discharge Instructions Activity: as per physical therapy, other (Home health PT OT/diabetic education) Diet: Consistent Carbohydrate Additional Instructions: Follow-up PCP in 5 days Outpatient diabetic education-patient has an extremely poor control with A1c of 14.7 Continue Lantus at 10 units daily and to uptitrate with fasting blood sugars Home health PT OT I recommend SNF physician to check CBC BMP UA as a posthospital follow-up in 1 week. Return to ER if worsening fever chills shortness of breath, diarrhea Review risk and side effect profile of medications including insuli and metformin. Side effect may include mild to severe reaction including low blood sugar/ diarrhea even which can be prevented by close follow-up with PCP and careful monitoring for side effects Refrain from smoking and alcohol Continue consistent carbohydrate diet and activity as advised Discussed importance of medication adherence Please review medication list with patient prior to discharge Please schedule follow-up with PCP/Providers prior to discharge and provide printouts Prescriptions: Accu-Chek 1 each FS ACHS #100 strip Insulin Glargine, Human [Lantus] 10 unit SQ DAILY #30 ml metFORMIN HCL [Metformin HCl ER] 500 mg PO DAILY #30 tab.er.24 - Problem Maintenance (1) Hypovolemic shock Status: Acute - Follow up Plan Follow up with: Radha Bliss MD [Primary Care Provider] - 05/21/18 11:40 am Shakeel Mccollum MD [Physician] - 06/11/18 1:15 pm (Your EGD and Colonoscopy is rescheduled to June. You will need to check in at 10:[address] [facility] for these procedures.) Disposition: Home Health Service Prognosis: Fair Rehab Potential: Fair I certify that the patient requires SNF services: No Overall status at discharge: patient is progressing back to baseline Medical - DS: Qual - VTE Deep Vein Thrombosis/Pulmonary Embolism Present on Admission: No
== END 2018-05-06 14:20 | disposition home health service (06) | DRG 640 ==
LOC: ED 13:35 → ICU 19:07 → MEDSUR 05-04 18:22
PROVIDERS: ADMIT Internal Medicine; ATTEND Internal Medicine
CPT/HCPCS: 80047; 82010; 85014; 97161; J1644; J1815; J1817; J3411; J3475; J7030; J7050; J7120; Q9967

== ENCOUNTER 2018-07-19 20:12 | Inpatient (IN) ==
[2018-07-19] MEDS ORDERED: IOPAMIDOL 100 ML BOTTLE IV ONE (20:13)
[2018-07-19] MEDS ORDERED: 0.9 % SODIUM CHLORIDE 1,000 ML IV ONE ×2 (20:34→22:01)
[2018-07-19] MEDS ORDERED: ONDANSETRON 4 MG/2 ML VIAL IV ONE (20:35)
--- NOTE | 2018-07-19 20:49 | Emergency Department Note ---
SOB HPI - General Chief Complaint: Shortness of Breath/Dyspnea Stated Complaint: SOB Time Seen by Provider: 07/19/18 20:18 Source: patient Mode of arrival: wheelchair Limitations: no limitations - History of Present Illness 63-year-old male comes in with vague complaints of dehydration decreased appetite and shortness of breath. He says he has chronic diarrhea. As of late he has not been able to hold much food down. He denies hematemesis though. No fever but has chills. Has been continuing to lose weight. Last saw his primary care provider at the [facility] a month ago. He continues to smoke and has known COPD - Related Data Home Medications Medication Instructions Recorded Confirmed Fluticasone/Salmeterol [Advair 2 puff INH BID 08/29/15 07/19/18 250-50 Diskus] Celecoxib [Celebrex] 50 mg PO HS 12/22/16 07/19/18 Tamsulosin [Flomax] 0.4 mg PO HS 12/22/16 07/19/18 DULoxetine HCL [Cymbalta] 60 mg PO HS 05/03/18 07/19/18 Gabapentin [Neurontin] 600 mg PO TID 05/03/18 07/19/18 Insulin Glargine,Hum.rec.anlog 12 unit SQ DAILY 07/19/18 07/19/18 [Basaglar Kwikpen U-100] Previous Rx's Medication Instructions Recorded traMADol [Ultram] 50 mg PO Q6HP PRN #15 tablet 11/14/15 Accu-Chek 1 each FS ACHS #100 strip 05/06/18 Allergies Allergy/AdvReac Type Severity Reaction Status Date / Time codeine AdvReac Intermediate Rash Verified 07/19/18 20:14 Review of Systems All systems ED: reviewed and negative except as stated. Past Medical History - Past Medical History Attestation: Yes: The following information was validated with the patient. Medical history: Reports: arthritis, asthma, COPD, DM (With neuropathy), other (Prostate problems) Surgical history ED: Reports: hip replacement, splenectomy, other (Partial pancreas removal for pseudocysts) - Social History smoking status: Current some day smoker Alcohol use: Reports: None Drug use: Reports: none Physical Exam Cachectic appearing male with hoarse voice and end expiratory wheeze. Normocephalic atraumatic. Conjunctive are clear sclerae white and anicteric. No nasal discharge or congestion. Oropharynx with dry buccal mucosa. Posterior pharynx is clear. Neck is supple without lymphadenopathy or thyromegaly. Heart with inferiorly displaced PMI. Regular rhythm without murmur. Barrel chest. Lungs are basically clear to auscultation but he does have end expiratory wheezes noted above. Abdomen soft mild diffuse tenderness but no point tenderness. No pedal edema. Alert oriented Limitations: no limitations Course Vital Signs Temperature 97.5 F 07/19/18 20:12 Pulse Rate 109 H 07/19/18 20:12 Respiratory Rate 25 H 07/19/18 20:12 Blood Pressure 96/64 07/19/18 20:12 Pulse Oximetry (%) 90 07/19/18 20:12 Temperature 97.5 F 07/19/18 20:12 Pulse Rate 95 H 07/19/18 23:45 Respiratory Rate 28 H 07/19/18 23:45 Blood Pressure 130/71 07/19/18 23:45 Pulse Oximetry (%) 97 07/19/18 23:45 Shortness of Breath/Dyspnea - Lab Data Lab results reviewed: Yes I reviewed the patient's lab results. Result diagrams: 07/19/18 20:49 07/19/18 20:49 Lab Results 07/19/18 07/19/18 07/19/18 Range/Units 20:49 20:49 20:49 WBC 21.6 H (4.5-11.0) K/mcL RBC 4.33 L (4.50-5.90) M/mcL Hgb 13.1 L (13.5-16.5) g/dL Hct 41.9 (41.0-55.0) % MCV 96.9 (80.0-100.0) fL MCH 30.3 (26.0-34.0) pg MCHC 31.3 (31.0-36.0) g/dL RDW 14.6 H (11.5-14.5) % Plt Count 289 (140-440) K/mcL MPV 10.5 H (7.4-10.4) fL Gran % 92.8 H (38.0-78.0) % Lymph % (Auto) 3.8 L (15.5-49.0) % [place] % (Auto) 3.4 (1.0-12.0) % Eos % (Auto) 0 (0.0-7.0) % Baso % (Auto) 0 (0.0-2.0) % Gran # 20.0 H (1.8-8.0) K/mcL Lymph # (Auto) 0.8 L (1.5-4.8) K/mcL [place] # (Auto) 0.7 (0.1-0.9) K/mcL Eos # (Auto) 0 (0.0-0.7) K/mcL Baso # (Auto) 0 (0.0-0.3) K/mcL D-Dimer 1.24 H (0.00-0.40) ug/ml VBG Lactic Acid (0.5-2.0) mmol/L Sodium 125 L (133-145) mmol/L Potassium 4.1 (3.3-5.1) mmol/L Chloride 85 L (96-108) mmol/L Carbon Dioxide 23 (22-30) mmol/L Anion Gap 17.0 H (8-16) BUN 22 (8-23) mg/dl Creatinine 0.9 (0.7-1.2) mg/dl GFR Calculation 91 Glucose 709 H* (70-105) mg/dL Calcium 8.0 L (8.6-10.4) mg/dl Magnesium 1.6 (1.6-2.5) mg/dL Total Bilirubin 0.5 (0.0-1.0) mg/dL AST 11 (0-37) U/l ALT 12 (0-40) U/l Alkaline Phosphatase 326 H (39-117) U/L Total Creatine Kinase (24-195) IU/L Troponin T (0-0.03) ng/ml NT-Pro-B Natriuret Pep 781.5 H (0-125) pg/ml Total Protein 7.4 (5.9-8.4) gm/dL Albumin 2.0 L (3.2-5.2) gm/dL Globulin 5.4 H (2.2-3.7) gm/dL Albumin/Globulin Ratio 0.4 L (1.0-2.3) Lipase < 7 L (7-60) U/L Procalcitonin (<0.10) ng/mL Urine Color Urine Appearance Urine pH (5.0-9.0) Ur Specific [place] (1.000-1.035) Urine Protein (NEG) mg/dL Urine Glucose (UA) (NEG) mg/dL Urine Ketones (NEG) mg/dL Urine Occult Blood (<0.03) mg/dL Urine Nitrate (NEG) Urine Bilirubin (NEG) mg/dL Urine Urobilinogen (NEG) mg/dL Ur Leukocyte Esterase (NEG) /uL Urine RBC (0-1) /hpf Urine WBC (0-4) /hpf Ur Squamous Epith Cells (0-4) /hpf Urine Bacteria (0) /hpf Urine Mucus (0) /hpf Ur Culture Indicated? 07/19/18 07/19/18 07/19/18 Range/Units 20:49 20:49 20:49 WBC (4.5-11.0) K/mcL RBC (4.50-5.90) M/mcL Hgb (13.5-16.5) g/dL Hct (41.0-55.0) % MCV (80.0-100.0) fL MCH (26.0-34.0) pg MCHC (31.0-36.0) g/dL RDW (11.5-14.5) % Plt Count (140-440) K/mcL MPV (7.4-10.4) fL Gran % (38.0-78.0) % Lymph % (Auto) (15.5-49.0) % [place] % (Auto) (1.0-12.0) % Eos % (Auto) (0.0-7.0) % Baso % (Auto) (0.0-2.0) % Gran # (1.8-8.0) K/mcL Lymph # (Auto) (1.5-4.8) K/mcL [place] # (Auto) (0.1-0.9) K/mcL Eos # (Auto) (0.0-0.7) K/mcL Baso # (Auto) (0.0-0.3) K/mcL D-Dimer (0.00-0.40) ug/ml VBG Lactic Acid 2.7 H (0.5-2.0) mmol/L Sodium (133-145) mmol/L Potassium (3.3-5.1) mmol/L Chloride (96-108) mmol/L Carbon Dioxide (22-30) mmol/L Anion Gap (8-16) BUN (8-23) mg/dl Creatinine (0.7-1.2) mg/dl GFR Calculation Glucose (70-105) mg/dL Calcium (8.6-10.4) mg/dl Magnesium (1.6-2.5) mg/dL Total Bilirubin (0.0-1.0) mg/dL AST (0-37) U/l ALT (0-40) U/l Alkaline Phosphatase (39-117) U/L Total Creatine Kinase 27 (24-195) IU/L Troponin T (0-0.03) ng/ml NT-Pro-B Natriuret Pep (0-125) pg/ml Total Protein (5.9-8.4) gm/dL Albumin (3.2-5.2) gm/dL Globulin (2.2-3.7) gm/dL Albumin/Globulin Ratio (1.0-2.3) Lipase (7-60) U/L Procalcitonin 1.90 (<0.10) ng/mL Urine Color Urine Appearance Urine pH (5.0-9.0) Ur Specific [place] (1.000-1.035) Urine Protein (NEG) mg/dL Urine Glucose (UA) (NEG) mg/dL Urine Ketones (NEG) mg/dL Urine Occult Blood (<0.03) mg/dL Urine Nitrate (NEG) Urine Bilirubin (NEG) mg/dL Urine Urobilinogen (NEG) mg/dL Ur Leukocyte Esterase (NEG) /uL Urine RBC (0-1) /hpf Urine WBC (0-4) /hpf Ur Squamous Epith Cells (0-4) /hpf Urine Bacteria (0) /hpf Urine Mucus (0) /hpf Ur Culture Indicated? 07/19/18 07/19/18 Range/Units 20:49 22:15 WBC (4.5-11.0) K/mcL RBC (4.50-5.90) M/mcL Hgb (13.5-16.5) g/dL Hct (41.0-55.0) % MCV (80.0-100.0) fL MCH (26.0-34.0) pg MCHC (31.0-36.0) g/dL RDW (11.5-14.5) % Plt Count (140-440) K/mcL MPV (7.4-10.4) fL Gran % (38.0-78.0) % Lymph % (Auto) (15.5-49.0) % [place] % (Auto) (1.0-12.0) % Eos % (Auto) (0.0-7.0) % Baso % (Auto) (0.0-2.0) % Gran # (1.8-8.0) K/mcL Lymph # (Auto) (1.5-4.8) K/mcL [place] # (Auto) (0.1-0.9) K/mcL Eos # (Auto) (0.0-0.7) K/mcL Baso # (Auto) (0.0-0.3) K/mcL D-Dimer (0.00-0.40) ug/ml VBG Lactic Acid (0.5-2.0) mmol/L Sodium (133-145) mmol/L Potassium (3.3-5.1) mmol/L Chloride (96-108) mmol/L Carbon Dioxide (22-30) mmol/L Anion Gap (8-16) BUN (8-23) mg/dl Creatinine (0.7-1.2) mg/dl GFR Calculation Glucose (70-105) mg/dL Calcium (8.6-10.4) mg/dl Magnesium (1.6-2.5) mg/dL Total Bilirubin (0.0-1.0) mg/dL AST (0-37) U/l ALT (0-40) U/l Alkaline Phosphatase (39-117) U/L Total Creatine Kinase (24-195) IU/L Troponin T < 0.01 (0-0.03) ng/ml NT-Pro-B Natriuret Pep (0-125) pg/ml Total Protein (5.9-8.4) gm/dL Albumin (3.2-5.2) gm/dL Globulin (2.2-3.7) gm/dL Albumin/Globulin Ratio (1.0-2.3) Lipase (7-60) U/L Procalcitonin (<0.10) ng/mL Urine Color Straw Urine Appearance Clear Urine pH 6.0 (5.0-9.0) Ur Specific [place] 1.022 (1.000-1.035) Urine Protein Neg (NEG) mg/dL Urine Glucose (UA) >=500 A (NEG) mg/dL Urine Ketones 20 A (NEG) mg/dL Urine Occult Blood 0.2 A (<0.03) mg/dL Urine Nitrate Neg (NEG) Urine Bilirubin Neg (NEG) mg/dL Urine Urobilinogen Neg (NEG) mg/dL Ur Leukocyte Esterase Neg (NEG) /uL Urine RBC 5 H (0-1) /hpf Urine WBC 1 (0-4) /hpf Ur Squamous Epith Cells 0 (0-4) /hpf Urine Bacteria 0 (0) /hpf Urine Mucus Few (0) /hpf Ur Culture Indicated? No ABG showed a pH 7.46 PCO2 35 PO2 of 56 likely reflecting hyperventilating. Not on oxygen - Radiology Data Radiology results reviewed: Yes I reviewed the patient's radiology results. Abdominal x-ray series shows lots of gas filled small bowel concern for partial small bowel obstruction versus nonspecific pattern. Chest x-ray shows right lower lobe pneumonia which is new compared to previous x-ray so CT scan is ordered to further sort this out. Disposition Pt seen by [employer]/PA only: No Clinical Impression: DKA (diabetic ketoacidoses) Qualifiers: Diabetes mellitus type: type 2 Diabetes mellitus complication detail: without coma Qualified Code(s): E11.10 - Type 2 diabetes mellitus with ketoacidosis without coma Pneumonia Qualifiers: Pneumonia type: due to unspecified organism Laterality: right Lung location: lower lobe of lung Qualified Code(s): J18.1 - Lobar pneumonia, unspecified organism Summary: Laboratory and x-ray workup ordered. Cachectic with concern for worsening COPD or malignancy-however patient states he is not sure if he has any form of malignancy Next checks x-ray shows new onset right lower lobe pneumonia with chronic inters titial fibrosis. Abdominal x-rays show gas distended bowels. CT ordered. Get blood cultures start Zosyn. Elevated pro-calcitonin argues for bacterial infection Laboratory shows leukocytosis with DKA-high anion gap with low sodium and glucose of 709. Continue IV fluids start insulin drip after insulin bolus [address] scan of chest abdomen pelvis shows pulmonary fibrosis with extensive dominguez ycombing. Right lower lobe consolidations noted consistent with pneumonia. Multiple other chronic findings likely including pancreatic calcification and dilatation of duct, nephrolithiasis bilateral. See [facility] read for full report Discussed findings with Dr. Rakesh Pedroza, hospitalist. He agreed to admit the patient for further care and evaluation. Blood sugar was 430 after being on the insulin drip. ABGs showed adequate compensation. Disposition: Xfer As Inpt ([facility]) Condition: Serious Referrals: Radha Bliss MD [Primary Care Provider] -
[2018-07-19 21:19] LABS: Basophils # (Auto) 0 K/mcL (0.0-0.3); Basophils % (Auto) 0 % (0.0-2.0); Eosinophils # (Auto) 0 K/mcL (0.0-0.7); Eosinophils % (Auto) 0 % (0.0-7.0); Granulocytes % (Auto) 92.8 % (38.0-78.0); Lymphocytes # (Auto) 0.8 K/mcL (1.5-4.8); Lymphocytes % (Auto) 3.8 % (15.5-49.0); Mean Cell Volume 96.9 fL (80.0-100.0); Mean Corpuscular HGB Conc 31.3 g/dL (31.0-36.0); Monocytes # (Auto) 0.7 K/mcL (0.1-0.9); Monocytes % (Auto) 3.4 % (1.0-12.0); Platelet Count 289 K/mcL (140-440); RBC 4.33 M/mcL (4.50-5.90); Red Cell Distribution Width 14.6 % (11.5-14.5)
[2018-07-19 21:45] LABS: ALT/SGPT 12 U/l (0-40); Albumin/Globulin Ratio 0.4 (1.0-2.3); Alkaline Phosphatase 326 U/L (39-117); Blood Urea Nitrogen 22 mg/dl (8-23); Lipase < 7 U/L (7-60); proBNP 781.5 pg/ml (0-125)
[2018-07-19] MEDS ORDERED: INSULIN REGULAR, HUMAN 1 UNIT/0.01 ML UNIT IV ONE (22:01)
[2018-07-19] MEDS ORDERED: PIPERACILLIN SODIUM/TAZOBACTAM 3.375 GM in DEXTROSE 5% IN WATER 50 ML IV ONE (22:02)
[2018-07-19] MEDS ORDERED: INSULIN REGULAR, HUMAN 50 UNIT in 0.9 % SODIUM CHLORIDE 99.5 ML IV SCH (22:15)
[2018-07-19 23:04] LABS: Appearance,Urine CLEAR; Bacteria,Urine 0 /hpf (0); Bilirubin,Urine NEG (NEG); Color,Urine STRAW; Glucose,Urine (UA) >=500 mg/dL (NEG); Leukocyte Esterase,Urine NEG /uL (NEG); Mucus,Urine FEW /hpf (0); Protein,Urine NEG (NEG); Specific Gravity,Urine 1.022 (1.000-1.035); Urine Blood 0.2 mg/dL (<0.03); Urine RBC 5 /hpf (0-1); Urine Squamous Epithelial Cell 0 /hpf (0-4); Urine WBC 1 /hpf (0-4); Urobilinogen,Urine NEG (NEG)
--- NOTE | 2018-07-20 01:07 | Internal Med History&Physical ---
Medical - H&P: [facility] Patient information: Note initiated : 07/20/18 at 1:04 am Service Date, if different from initiated Date: [] Patient: Solomon Mercado a 63 y/o M admitted on for Shortness of breath. Chief Complaint: [] History of present illness: Mr. Mercado is a 63 year old M Exam comes in with generalized weakness shortness breath increase in the past couple weeks and productive cough of valles sputum over the past couple weeks he had decreased appetite and very weak. Also has diarrhea but is somewhat chronic . He was admitted in May for similar presentation he was supposed to get a follow-up EGD and colonoscopy for significant weight loss and cachexia he did not do that. He misses his insulin several days a week says his blood sugars run typically between 200-60, he has COPD and is still smoking but is cutting down. That headache some nausea. Feels dehydrated Evaluated in the ED and found to have pneumonia and HHS in line depletion Review of Systems: Pertinent positives as above. Denies fever/chills/nausea/vomiting/chest or abdominal pain. Remaining 10 point review of system review negative Medical - H&P: PMH Medical history: Medical History Right knee gives way (Acute) Sprain of medial collateral ligament of right knee, initial encounter (Acute) Dehydration (Acute) Medical history: Reports: arthritis, asthma, COPD, DM (With neuropathy), other (Prostate problems) Surgical history ED: Reports: hip replacement, splenectomy, other (Partial pancreas removal for pseudocysts) Family history: Both parents had cancer unknown primary Social history: Patient smokes half pack per week denies alcohol use or drug use ambulates with a walker lives by himself Medical - H&P: Meds Home Medications Medication Instructions Recorded Confirmed Type Fluticasone/Salmeterol [Advair 2 puff INH BID 08/29/15 07/19/18 History 250-50 Diskus] traMADol [Ultram] 50 mg PO Q6HP PRN #15 tablet 11/14/15 07/19/18 Rx Celecoxib [Celebrex] 50 mg PO HS 12/22/16 07/19/18 History Tamsulosin [Flomax] 0.4 mg PO HS 12/22/16 07/19/18 History DULoxetine HCL [Cymbalta] 60 mg PO HS 05/03/18 07/19/18 History Gabapentin [Neurontin] 600 mg PO TID 05/03/18 07/19/18 History Accu-Chek 1 each FS ACHS #100 strip 05/06/18 07/19/18 Rx Insulin Glargine,Hum.rec.anlog 12 unit SQ DAILY 07/19/18 07/19/18 History [Basaglar Kwikpen U-100] Allergies Allergy/AdvReac Type Severity Reaction Status Date / Time codeine AdvReac Intermediate Rash Verified 07/19/18 20:14 Medical - H&P: Exam - Constitutional Vitals: Temp Pulse Resp BP Pulse Ox 97.5 F 95 H 28 H 130/71 97 07/19/18 20:12 07/19/18 23:45 07/19/18 23:45 07/19/18 23:45 07/19/18 23:45 Exam: General: Alert, Awake, No acute Distress, cachectic Eyes/N/T: EOMI, PEERL, DMM Head/Neck: neck supple, normocephalic atraumatic CV: RRR, No murmurs, normal s1/s2 Pulm: Right-sided rhonchi and diminished breath sounds, no wheezing Abd: soft, nontender, +BS x4 Ext: no clubbing/cyanosis/edema Neuro: Alert, no focal deficits, moves all extremities, CN 2-12 grossly intact, symmetrical strength b/l upper/lower, sensations intact b/l upper/lower Skin: warm/dry Medical - H&P: Reslt - Labs CBC & Chem 7: 07/19/18 20:49 07/19/18 20:49 Labs: Short CBC 07/19/18 Range/Units 20:49 WBC 21.6 H (4.5-11.0) K/mcL Hgb 13.1 L (13.5-16.5) g/dL Hct 41.9 (41.0-55.0) % Plt Count 289 (140-440) K/mcL BMP 07/19/18 20:49 Sodium 125 L Potassium 4.1 Chloride 85 L Carbon Dioxide 23 BUN 22 Creatinine 0.9 Glucose 709 H* Calcium 8.0 L Cardiac Enzymes 07/19/18 07/19/18 Range/Units 20:49 20:49 Total Creatine Kinase 27 (24-195) IU/L Troponin T < 0.01 (0-0.03) ng/ml Liver Function 07/19/18 Range/Units 20:49 Total Bilirubin 0.5 (0.0-1.0) mg/dL AST 11 (0-37) U/l ALT 12 (0-40) U/l Alkaline Phosphatase 326 H (39-117) U/L Albumin 2.0 L (3.2-5.2) gm/dL Urine 07/19/18 Range/Units 22:15 Urine Color Straw Urine Appearance Clear Urine pH 6.0 (5.0-9.0) Ur Specific [place] 1.022 (1.000-1.035) Urine Protein Neg (NEG) mg/dL Urine Glucose (UA) >=500 A (NEG) mg/dL - Impressions CT chest with pneumonia of the right lower lobe pulmonary fibrosis bilaterally and multiple chronic changes Medical - H&P: A/P - Narrative A/P Narrative: A: *Right lower lobe pneumonia: *HHS with early DKA (h/o DM w/neuropathy): Noncompliant with insulin *Sepsis *Volume depletion *Pseudohyponatremia *COPD(): *Depression/anxiety *Severe malnutrition * * P: -IVF -Serial electrolytes -Insulin drip -Vanco/Zosyn -Pending blood cultures and sputum cultures -Trend PCT, follow-up lactate -IS/Acapella -Dietary consult, Glucerna supplement -Check A1c -Stool studies - -ppx: Lovenox
[2018-07-20 01:57] LABS: Band Neutrophils % 21 % (0-10); Eosinophils % (Manual) 1 % (0-7); Lymphocytes % 8 % (15-49); Monocytes % (Manual) 3 % (1-12); Platelet Estimate NORMAL (NORMAL); RBC Morphology NORMAL (NORMAL); Segmented Neutrophils % 67 % (38-78); Toxic Granulation 1+ (NONE SEEN)
[2018-07-20] MEDS ORDERED: INSULIN REGULAR, HUMAN 50 UNIT in 0.9 % SODIUM CHLORIDE 99.5 ML IV SCH (02:21)
[2018-07-20] MEDS ORDERED: POTASSIUM CHLORIDE 20 MEQ TABLET PO PRN ×2 (02:21)
[2018-07-20] MEDS ORDERED: ONDANSETRON 4 MG/2 ML VIAL IV PRN (02:21)
[2018-07-20] MEDS ORDERED: MAGNESIUM SULFATE 2 GM/50 ML BAG IV PRN (02:21)
[2018-07-20] MEDS ORDERED: POTASSIUM CHLORIDE 40 MEQ in DEXTROSE 5% IN WATER 500 ML IV PRN (02:21)
[2018-07-20] MEDS ORDERED: VANCOMYCIN 750 MG in 0.9 % SODIUM CHLORIDE 250 ML IV ONE (02:21)
[2018-07-20] MEDS ORDERED: INSULIN LISPRO 1 UNIT/0.01 ML UNIT SQ SCH (02:30)
[2018-07-20] MEDS: 0.9 % SODIUM CHLORIDE 1,000 ML IV SCH ×2 (03:02→14:31)
[2018-07-20] MEDS: IPRATROPIUM/ALBUTEROL 3 ML AMPUL.NEB NEB SCH ×4 (03:03→13:05)
[2018-07-20] MEDS: PIPERACILLIN SODIUM/TAZOBACTAM 3.375 GM in DEXTROSE 5% IN WATER 50 ML IV SCH ×5 (03:08→17:15)
[2018-07-20] MEDS: VANCOMYCIN PER PHARMACY IV ONE ×2 (03:10→03:11)
[2018-07-20] MEDS ORDERED: IPRATROPIUM/ALBUTEROL 3 ML AMPUL.NEB NEB ONE (03:16)
[2018-07-20] MEDS: INSULIN LISPRO 1 UNIT/0.01 ML UNIT SQ SCH ×6 (03:20→20:54)
[2018-07-20 04:48] LABS: Basophils # (Auto) 0 K/mcL (0.0-0.3); Basophils % (Auto) 0.1 % (0.0-2.0); Eosinophils # (Auto) 0 K/mcL (0.0-0.7); Eosinophils % (Auto) 0.1 % (0.0-7.0); Granulocytes % (Auto) 84.1 % (38.0-78.0); Lymphocytes # (Auto) 2.1 K/mcL (1.5-4.8); Lymphocytes % (Auto) 12.9 % (15.5-49.0); Mean Cell Volume 94.1 fL (80.0-100.0); Mean Corpuscular HGB Conc 32.7 g/dL (31.0-36.0); Monocytes # (Auto) 0.4 K/mcL (0.1-0.9); Monocytes % (Auto) 2.8 % (1.0-12.0); Platelet Count 292 K/mcL (140-440); RBC 3.87 M/mcL (4.50-5.90); Red Cell Distribution Width 14.1 % (11.5-14.5)
[2018-07-20 05:03] LABS: Hemoglobin A1C 11.9 % HGB (4.0-6.0)
[2018-07-20 05:08] LABS: ALT/SGPT 11 U/l (0-40); Albumin 1.9 gm/dL (3.2-5.2); Albumin/Globulin Ratio 0.4 (1.0-2.3); Alkaline Phosphatase 282 U/L (39-117); Bilirubin,Direct < 0.2 mg/dL (0.0-0.3); Blood Urea Nitrogen 14 mg/dl (8-23); Gamma Glutamyl Transpeptidase 74 U/L (8-61); Uric Acid 5.2 mg/dL (2.5-8.0)
[2018-07-20] MEDS: 0.9 % SODIUM CHLORIDE 10 ML SYRINGE IV SCH ×3 (05:53→20:55)
--- NOTE | 2018-07-20 05:57 | XRay Report ---
CLINICAL INFORMATION: Nausea and vomiting TECHNIQUE: AP supine abdomen COMPARISON: None. FINDINGS: Gas and fecal material within the colon. No dilated gas-filled small bowel. The bowel gas pattern is nonspecific and nonobstructive. No pneumatosis. No biliary or portal venous gas. Patient did have a concurrent chest x-ray and there is no pneumoperitoneum IMPRESSION: Nonspecific bowel gas pattern Interpreted and Authenticated by: Shakeel Holm 07/20/18
--- NOTE | 2018-07-20 05:59 | XRay Report ---
INDICATION: History of interstitial fibrosis. Dyspnea. TECHNIQUE: AP chest x-ray,portable COMPARISON: Previous chest x-ray dated 07/22/2017 FINDINGS: Diffuse lung disease consistent with interstitial fibrosis. There is dense consolidation at the right lung base. There is mild infiltrate at the left lung base. Findings are consistent with pneumonia superimposed upon chronic interstitial fibrosis. These findings are new since previous examination. Malignancy is possible but there has been very rapid interval growth since prior study making this less likely No change in heart size. IMPRESSION: 1. Chronic interstitial fibrosis 2. Dense right basilar consolidation consistent with superimposed pneumonia Interpreted and Authenticated by: Shakeel Holm 07/20/18
--- NOTE | 2018-07-20 06:13 | Cat Scan Report ---
CLINICAL INFORMATION: History of interstitial fibrosis. Weight loss. Nausea and vomiting. TECHNIQUE: Axial images through the chest, abdomen, pelvis. 80 mL contrast material injected. Sagittal and coronal reformatted images COMPARISON: Previous chest abdomen pelvis CT scan dated 05/03/2018 FINDINGS: CHEST: There is severe interstitial lung disease. There is honeycombing, traction bronchiectasis, and reticular abnormality consistent with interstitial fibrosis, probably UIP. There has been interval development of multiple areas of parenchymal consolidation. There is dense consolidation in the right lower lobe and right middle lobe with air bronchograms. There are multiple masslike densities at both lung bases, right worse than left. These findings are new since 05/03/2018. This appearance is most consistent with superimposed acute pneumonia. There are areas of spiculated mass density at the right lung base and malignancy is not excluded. Follow-up examinations are recommended. No significant pleural effusion. There is no pericardial effusion. No pathologic hilar or mediastinal adenopathy. There is no axillary adenopathy. No supraclavicular adenopathy. There are mild compression deformities of several thoracic vertebral bodies. No acute rib fracture or sternal fracture. There is calcification of the thoracic aorta. No acute aneurysmal dilatation. No dissection. There is no detectable pulmonary embolism ABDOMEN, PELVIS: Heterogeneous enhancement of the liver. This is unchanged. A discrete mass is not identified. Liver contour is smooth. There is no ascites. Gallbladder is present. No calcified gallstones. Spleen is not identified. There is limited enhancement of the portal vein but this is probably due to early phase imaging Pancreas is markedly atrophic and calcified. Pancreatic duct is irregular. Findings are consistent with chronic pancreatitis. Precontrast images through the kidneys were not obtained. There are multiple densities which suggest stones although this is not definite. There is no hydronephrosis. No solid or cystic renal mass. No hydroureter. Adrenal glands are poorly visualized. No adrenal mass. There is gas and fecal material within the colon. There is probable constipation. No detectable colonic mass. No mechanical small bowel obstruction. There is no pneumoperitoneum. No biliary or portal venous gas. No pneumatosis. No intra-abdominal abscess identified. Urinary bladder is mildly distended There are multiple compression deformities of lumbar vertebral bodies. These are unchanged. No sacral or pelvic fracture. There is generalized lack of intra-abdominal or subcutaneous fat consistent with cachexia. Examination was initially interpreted by [facility] IMPRESSION: 1. Severe interstitial lung disease consistent with UIP 2. Multiple areas of acute consolidation at the lung bases. Multiple masslike densities. Appearance is consistent with superimposed pneumonia. Malignancy is not excluded 3. Severe cachexia 4. Multiple compression deformities in the thoracic and lumbar spine 5. Findings consistent with constipation. 6. No intra-abdominal abscess Interpreted and Authenticated by: Shakeel Holm 07/20/18
[2018-07-20] MEDS ORDERED: VANCOMYCIN PER PHARMACY IV SCH (07:15)
--- NOTE | 2018-07-20 07:22 | Internal Med Progress Note ---
Medical - PN: Subj Patient information: Note initiated : 07/20/18 at 7:13 am Service Date, if different from initiated Date: [] Patient: Solomon Mercado a 63 y/o M admitted on 07/20/18 for Shortness of breath. Chief Complaint: [] Interval history: Mr. Mercado is a 63 year old M Exam comes in with generalized weakness shortness breath increase in the past couple weeks and productive cough of valles sputum over the past couple weeks he had decreased appetite and very weak. Also has diarrhea but is somewhat chronic. He was admitted in May for similar presentation he was supposed to get a follow-up EGD and colonoscopy for significant weight loss and cachexia he did not do that. He misses his insulin several days a week says his blood sugars run typically between 200-60, he has COPD and is still smoking but is cutting down. That headache some nausea. Feels dehydrated Evaluated in the ED and found to have pneumonia and HHS in line depletion 07/20 Feeling better today. Still tired. Does have productive cough and and shortness of breath is improving. Now off insulin drip. Review of Systems: denies headache/fever/chills/nausea/vomiting/chest or abdominal pain. Otherwise see above. - Constitutional Vitals: Vital Signs Temp Pulse Resp BP Pulse Ox 99.7 F H 80 24 H 135/80 96 07/20/18 04:01 07/20/18 03:25 07/20/18 06:07 07/20/18 06:01 07/20/18 06:01 Period Temp Pulse Resp BP Sys/Lugo Pulse Ox Last 24 Hr 97.5 F-99.7 F 80-109 10-35 96-147/57-105 90-100 Intake and Output 07/19/18 07/20/18 07/20/18 21:59 05:59 13:59 Intake Total 2065 Output Total 300 Balance 2065 -300 Weight 36.287 kg 40.687 kg Intake & Output: Intake & Output 07/19/18 07/20/18 07/20/18 21:59 05:59 13:59 Intake Total 2065 Output Total 300 Balance 2065 -300 Weight 36.287 kg 40.687 kg Intake: IV 2065 Sodium Chloride 0.9% 1,000 ml @ 2000 Wide Open IV [facility] Rx#: [id number] HumuLIN R 50 UNIT In Sodium 16 Chloride 0.9% 99.5 ml @ 3 UNIT/ HR 6 mls/hr IV DUR [facility] Rx#: [id number] Zosyn 3.375 gm In Dextrose 5% 50 in Water 50 ml @ 100 mls/hr IV ONCE ONE Rx#:[id number] Output: Void Amount 300 Other: Urine Color Dark Yellow Urine Odor Strong Exam: General: Alert, Awake, No acute Distress, cachectic Eyes/N/T: EOMI, Head/Neck: neck supple, CV: RRR, No murmurs, Pulm: Fine rales bilaterally more on right and also right-sided rhonchi, diminished breath sounds, no wheezing Abd: soft, nontender, +BS x4 Ext: no clubbing/cyanosis/edema Neuro: Alert, no focal deficits, moves all extremities, Skin: warm/dry Medical - PN: Obj Da - Labs CBC & Chem 7: 07/20/18 03:35 07/20/18 03:35 Labs: Abnormal Lab Results 07/20/18 07/20/18 07/20/18 20:49 20:49 03:35 WBC RBC Hgb Hct POC Hct RDW MPV Gran % Lymph % (Auto) Gran # Lymph # (Auto) Band Neutrophils % 21 H Lymphocytes % 8 L WBC Morphology Abnorm A Toxic Granulation 1+ A D-Dimer VBG Lactic Acid Sodium 132 L POC Chloride Chloride Anion Gap POC Creatinine Glucose 119 H POC Glucose Hemoglobin A1c Osmolality 322 H Calcium 7.6 L POC WB Ioniz Calcium Phosphorus 1.8 L Magnesium 1.5 L 1.5 L GGT 74 H Alkaline Phosphatase 282 H Lactate Dehydrogenase 262 H NT-Pro-B Natriuret Pep Albumin 1.9 L Globulin 4.5 H Albumin/Globulin Ratio 0.4 L Prealbumin Lipase Beta-Hydroxybutyrate Urine Glucose (UA) Urine Ketones Urine Occult Blood Urine RBC 07/20/18 07/20/18 07/20/18 03:35 03:35 01:25 WBC 16.2 H RBC 3.87 L Hgb 11.9 L Hct 36.4 L POC Hct RDW MPV Gran % 84.1 H Lymph % (Auto) 12.9 L Gran # 13.6 H Lymph # (Auto) Band Neutrophils % Lymphocytes % WBC Morphology Toxic Granulation D-Dimer VBG Lactic Acid 2.5 H Sodium POC Chloride Chloride Anion Gap POC Creatinine Glucose POC Glucose Hemoglobin A1c 11.9 H Osmolality Calcium POC WB Ioniz Calcium Phosphorus Magnesium GGT Alkaline Phosphatase Lactate Dehydrogenase NT-Pro-B Natriuret Pep Albumin Globulin Albumin/Globulin Ratio Prealbumin 3.0 L Lipase Beta-Hydroxybutyrate Urine Glucose (UA) Urine Ketones Urine Occult Blood Urine RBC 07/20/18 07/19/18 07/19/18 00:58 22:15 20:49 WBC RBC Hgb Hct POC Hct 40.0 L RDW MPV Gran % Lymph % (Auto) Gran # Lymph # (Auto) Band Neutrophils % Lymphocytes % WBC Morphology Toxic Granulation D-Dimer VBG Lactic Acid Sodium POC Chloride 94 L Chloride Anion Gap POC Creatinine 0.6 L Glucose POC Glucose 268 H Hemoglobin A1c Osmolality Calcium POC WB Ioniz Calcium 0.99 L Phosphorus Magnesium GGT Alkaline Phosphatase Lactate Dehydrogenase NT-Pro-B Natriuret Pep Albumin Globulin Albumin/Globulin Ratio Prealbumin Lipase Beta-Hydroxybutyrate 3.25 H Urine Glucose (UA) >=500 A Urine Ketones 20 A Urine Occult Blood 0.2 A Urine RBC 5 H 07/19/18 07/19/18 07/19/18 20:49 20:49 20:49 WBC RBC Hgb Hct POC Hct RDW MPV Gran % Lymph % (Auto) Gran # Lymph # (Auto) Band Neutrophils % Lymphocytes % WBC Morphology Toxic Granulation D-Dimer 1.24 H VBG Lactic Acid 2.7 H Sodium 125 L POC Chloride Chloride 85 L Anion Gap 17.0 H POC Creatinine Glucose 709 H* POC Glucose Hemoglobin A1c Osmolality Calcium 8.0 L POC WB Ioniz Calcium Phosphorus Magnesium GGT Alkaline Phosphatase 326 H Lactate Dehydrogenase NT-Pro-B Natriuret Pep 781.5 H Albumin 2.0 L Globulin 5.4 H Albumin/Globulin Ratio 0.4 L Prealbumin Lipase < 7 L Beta-Hydroxybutyrate Urine Glucose (UA) Urine Ketones Urine Occult Blood Urine RBC 07/19/18 20:49 WBC 21.6 H RBC 4.33 L Hgb 13.1 L Hct POC Hct RDW 14.6 H MPV 10.5 H Gran % 92.8 H Lymph % (Auto) 3.8 L Gran # 20.0 H Lymph # (Auto) 0.8 L Band Neutrophils % Lymphocytes % WBC Morphology Toxic Granulation D-Dimer VBG Lactic Acid Sodium POC Chloride Chloride Anion Gap POC Creatinine Glucose POC Glucose Hemoglobin A1c Osmolality Calcium POC WB Ioniz Calcium Phosphorus Magnesium GGT Alkaline Phosphatase Lactate Dehydrogenase NT-Pro-B Natriuret Pep Albumin Globulin Albumin/Globulin Ratio Prealbumin Lipase Beta-Hydroxybutyrate Urine Glucose (UA) Urine Ketones Urine Occult Blood Urine RBC Meds: Medications Acetaminophen (Tylenol) 650 mg PO Q4-6HP PRN PRN Reason: PAIN/FEVER > 101 Albuterol/Ipratropium (Duoneb) 3 ml NEB Q6HRT [facility] Last Admin: 07/20/18 03:16 Dose: 3 ml Documented by: Diagnostic Test (Pha) (Accu-Chek) 1 each FS Q3 [facility] Last Admin: 07/20/18 05:51 Dose: 1 each Documented by: Duloxetine HCl (Cymbalta) 60 mg PO HS [facility] Enoxaparin Sodium (Lovenox) 30 mg SQ DAILY [facility] Gabapentin (Neurontin) 600 mg PO TID [facility] Insulin Human Regular 50 unit/ (Sodium Chloride) 100 mls @ 6 mls/hr IV DUR [facility]; Protocol Sodium Chloride (Sodium Chloride 0.9%) 1,000 mls @ 75 mls/hr IV .[id number] [facility] Stop: 07/21/18 05:00 Last Admin: 07/20/18 03:02 Dose: 75 mls/hr Documented by: Piperacillin Sod/Tazobactam (Sod 3.375 gm/ Dextrose) 50 mls @ 100 mls/hr IV Q6H [facility] Last Admin: 07/20/18 05:52 Dose: 100 mls/hr Documented by: Potassium Chloride 40 meq/ (Dextrose) 520 mls @ 130 mls/hr IV ONCE PRN PRN Reason: Potassium < 3 Magnesium Sulfate (Magnesium Sulfate) 2 gm in 50 mls @ 50 mls/hr IV ONCE PRN PRN Reason: Magnesium </= 1.6 Vancomycin HCl 500 mg/ Sodium (Chloride) 100 mls @ 100 mls/hr IV DAILY [facility] Insulin Glargine (Lantus) 12 unit SQ DAILY [facility] Insulin Human Lispro (Humalog) 0 unit SQ Q3 [facility]; Protocol Last Admin: 07/20/18 05:51 Dose: Not Given Documented by: Ondansetron HCl (Zofran) 4 mg IV Q4-6HP PRN PRN Reason: Nausea And Vomiting Pantoprazole Sodium (Protonix) 40 mg PO QAMAC [facility] Potassium Chloride (Kdur) 40 meq PO ONCE PRN PRN Reason: Potassium is 3-3.5 Potassium Chloride (Kdur) 40 meq PO ONCE PRN PRN Reason: Potassium < 3 Fluticasone/Salmeterol (Advair 250-50 Diskus) 2 puff INH BID [facility] Sodium Chloride (Saline Flush) 10 ml IV Q8 [facility] Last Admin: 07/20/18 05:53 Dose: Not Given Documented by: Tamsulosin HCl (Flomax) 0.4 mg PO HS [facility] Tramadol HCl (Ultram) 50 mg PO Q6HP PRN PRN Reason: Breakthrough Pain Vancomycin HCl (Vancomycin Per Pharmacy) 1 order IV UD [facility] Medical - PN: A/P - Time Spent With Patient Total time spent is greater than 50% in coordination of care (as documented) at patient's floor/unit and/or counseling patient: - Narrative A/P Narrative: A: *Right lower lobe pneumonia: -strep urine ag neg -PCT 1.9, LA 2.7 on admit *HHS with early DKA (h/o DM w/neuropathy): Noncompliant with insulin -A1c 11.9 *Sepsis: *Volume depletion *COPD(not on home O2): *Depression/anxiety *Severe malnutrition: *Pseudohyponatremia *hypophos/mag * P: -IVF -Serial electrolytes -off insulin gtt to basal (increase) and SSI -replete electrolytes -Vanco/Zosyn -Pending blood cultures and sputum cultures -Trend PCT, follow-up lactate -IS/Acapella, home IH's -Dietary consult, Glucerna supplement -Stool studies -f/u with GI for EGD/Colonoscopy -ppx: Lovenox No Code Medical - PN: Qual - Stroke Symptom Onset Unknown: No - VTE Deep Vein Thrombosis/Pulmonary Embolism Present on Admission: No
[2018-07-20] MEDS: PANTOPRAZOLE 40 MG TABLET PO SCH (07:38)
[2018-07-20] MEDS: ACETAMINOPHEN 325 MG TABLET PO PRN ×2 (07:38→13:54)
[2018-07-20] MEDS: FLUTICASONE/SALMETEROL 250/50 INHALER #14 INH SCH ×2 (07:44→21:10)
[2018-07-20] MEDS ORDERED: POTASSIUM PHOSPHATE 40 MEQ in DEXTROSE 5% IN WATER 500 ML IV ONE (08:00)
[2018-07-20] MEDS ORDERED: INSULIN GLARGINE, HUMAN 1 UNIT/0.01 ML SQ SCH ×2 (09:00)
[2018-07-20] MEDS: ENOXAPARIN 30 MG/0.3 ML SYRINGE SQ SCH (09:14)
[2018-07-20] MEDS: GABAPENTIN 300 MG CAPSULE PO SCH ×3 (09:14→20:55)
[2018-07-20 10:55] LABS: ALT/SGPT 12 U/l (0-40); Albumin 1.8 gm/dL (3.2-5.2); Albumin/Globulin Ratio 0.4 (1.0-2.3); Alkaline Phosphatase 319 U/L (39-117); Bilirubin,Direct 0.2 mg/dL (0.0-0.3); Blood Urea Nitrogen 13 mg/dl (8-23); Gamma Glutamyl Transpeptidase 91 U/L (8-61); Uric Acid 4.5 mg/dL (2.5-8.0)
[2018-07-20] MEDS ORDERED: MAGNESIUM SULFATE 2 GM/50 ML BAG IV ONE (11:54)
[2018-07-20] MEDS: NEUTRA PHOS 1 PACKET PO SCH ×2 (12:17→21:03)
[2018-07-20] MEDS: VANCOMYCIN 500 MG in 0.9 % SODIUM CHLORIDE 100 ML IV SCH (17:15)
[2018-07-20] MEDS: DULoxetine 30 MG CAPSULE PO SCH (20:55)
[2018-07-20] MEDS: TAMSULOSIN 0.4 MG CAPSULE PO SCH (20:55)
[2018-07-21] MEDS: IPRATROPIUM/ALBUTEROL 3 ML AMPUL.NEB NEB SCH ×5 (00:36→19:03)
[2018-07-21] MEDS: PIPERACILLIN SODIUM/TAZOBACTAM 3.375 GM in DEXTROSE 5% IN WATER 50 ML IV SCH ×4 (00:36→17:34)
[2018-07-21] MEDS: 0.9 % SODIUM CHLORIDE 10 ML SYRINGE IV SCH ×3 (05:30→22:59)
[2018-07-21 05:51] LABS: Basophils # (Auto) 0 K/mcL (0.0-0.3); Basophils % (Auto) 0.2 % (0.0-2.0); Eosinophils # (Auto) 0 K/mcL (0.0-0.7); Eosinophils % (Auto) 0.2 % (0.0-7.0); Granulocytes % (Auto) 91.2 % (38.0-78.0); Lymphocytes # (Auto) 1.4 K/mcL (1.5-4.8); Lymphocytes % (Auto) 7.5 % (15.5-49.0); Monocytes # (Auto) 0.2 K/mcL (0.1-0.9); Monocytes % (Auto) 0.9 % (1.0-12.0); Platelet Count 287 K/mcL (140-440); RBC 3.95 M/mcL (4.50-5.90); Red Cell Distribution Width 14.8 % (11.5-14.5)
[2018-07-21 06:06] LABS: ALT/SGPT 17 U/l (0-40); Albumin 1.4 gm/dL (3.2-5.2); Albumin/Globulin Ratio 0.3 (1.0-2.3); Alkaline Phosphatase 324 U/L (39-117); Bilirubin,Direct < 0.2 mg/dL (0.0-0.3); Blood Urea Nitrogen 18 mg/dl (8-23); Gamma Glutamyl Transpeptidase 103 U/L (8-61); Uric Acid 3.8 mg/dL (2.5-8.0)
[2018-07-21] MEDS: FLUTICASONE/SALMETEROL 250/50 INHALER #14 INH SCH ×2 (07:15→19:54)
[2018-07-21] MEDS: GABAPENTIN 300 MG CAPSULE PO SCH (07:29)
[2018-07-21] MEDS: ACETAMINOPHEN 325 MG TABLET PO PRN ×2 (07:29→18:45)
[2018-07-21] MEDS: PANTOPRAZOLE 40 MG TABLET PO SCH (07:29)
[2018-07-21] MEDS: ENOXAPARIN 30 MG/0.3 ML SYRINGE SQ SCH (07:30)
[2018-07-21] MEDS: INSULIN LISPRO 1 UNIT/0.01 ML UNIT SQ SCH ×4 (07:40→20:13)
--- NOTE | 2018-07-21 08:17 | Internal Med Progress Note ---
Medical - PN: Subj Patient information: Note initiated : 07/21/18 at 8:07 am Service Date, if different from initiated Date: [] Patient: Solomon Mercado a 63 y/o M admitted on 07/20/18 for Shortness of breath. Chief Complaint: [] Interval history: Mr. Mercado is a 63 year old M Exam comes in with generalized weakness shortness breath increase in the past couple weeks and productive cough of valles sputum over the past couple weeks he had decreased appetite and very weak. Also has diarrhea but is somewhat chronic. He was admitted in May for similar presentation he was supposed to get a follow-up EGD and colonoscopy for significant weight loss and cachexia he did not do that. He misses his insulin several days a week says his blood sugars run typically between 200-60, he has COPD and is still smoking but is cutting down. That headache some nausea. Feels dehydrated Evaluated in the ED and found to have pneumonia and HHS in line depletion 07/20 Feeling better today. Still tired. Does have productive cough and and shortness of breath is improving. Now off insulin drip. 07/21 Tired this morning and sleeping when I visited him at 11 AM. But he was easily arousable and he was alert and oriented and followed commands. Still has a bit of a cough and some shortness of breath but improving. No other acute issues or complaints. No issues overnight. Review of Systems: denies headache/fever/chills/nausea/vomiting/chest or abdominal pain. Otherwise see above. - Constitutional Vitals: Vital Signs Temp Pulse Resp BP Pulse Ox 97.9 F 96 H 20 112/61 91 07/21/18 04:01 07/21/18 07:36 07/21/18 07:36 07/21/18 07:01 07/21/18 07:01 Period Temp Pulse Resp BP Sys/Lugo Pulse Ox Last 24 Hr 97.9 F-99.0 F 83-96 15-29 84-128/50-85 90-99 Intake and Output 07/20/18 07/21/18 07/21/18 21:59 05:59 13:59 Intake Total 6524 836 0987 Output Total 375 350 Balance 675 -200 1050 Weight 44.18 kg Intake & Output: Intake & Output 07/20/18 07/21/18 07/21/18 21:59 05:59 13:59 Intake Total 3298 776 0402 Output Total 375 350 Balance 675 -200 1050 Weight 44.18 kg Intake: IV 8356 678 5813 Sodium Chloride 0.9% 1,000 ml @ 1000 75 mls/hr IV .[id number] [facility] Rx#: [id number] Zosyn 3.375 gm In Dextrose 5% 50 50 50 in Water 50 ml @ 100 mls/hr IV Q6H [facility] Rx#:[id number] Vancomycin 500 mg In Sodium 100 Chloride 0.9% 100 ml @ 100 mls/ hr IV DAILY [facility] Rx#:[id number] Output: Void Amount 375 350 Other: Urine Color Dark Yellow Dark Yellow Urine Odor Strong Strong Stool Size Moderate Stool Color Brown Stool Consistency Formed # Bowel Movements 1 Exam: General: drowsy, No acute Distress, cachectic Eyes/N/T: EOMI, Head/Neck: neck supple, CV: RRR, No murmurs, Pulm: Fine rales bilaterally more on right and also right-sided rhonchi, no wheezing Abd: soft, nontender, +BS x4 Ext: no clubbing/cyanosis/edema Neuro: drowsy but easily awakened and alert and oriented x3, no focal deficits, moves all extremities, Skin: warm/dry Medical - PN: Obj Da - Labs CBC & Chem 7: 07/21/18 03:30 07/21/18 03:30 Labs: Abnormal Lab Results 07/21/18 07/21/18 07/20/18 03:30 03:30 20:49 WBC 18.1 H RBC 3.95 L Hgb 12.1 L Hct 38.0 L POC Hct RDW 14.8 H MPV 10.5 H Gran % 91.2 H Lymph % (Auto) 7.5 L Over[place] % (Auto) 0.9 L Gran # 16.6 H Lymph # (Auto) 1.4 L Band Neutrophils % Lymphocytes % WBC Morphology Toxic Granulation D-Dimer VBG Lactic Acid Sodium POC Chloride Chloride Anion Gap POC Creatinine Glucose 48 L POC Glucose Hemoglobin A1c Osmolality 322 H Calcium 7.1 L POC WB Ioniz Calcium Phosphorus Magnesium 1.5 L GGT 103 H Alkaline Phosphatase 324 H Lactate Dehydrogenase NT-Pro-B Natriuret Pep Albumin 1.4 L Globulin 5.2 H Albumin/Globulin Ratio 0.3 L Prealbumin Lipase Beta-Hydroxybutyrate Urine Glucose (UA) Urine Ketones Urine Occult Blood Urine RBC 07/20/18 07/20/18 07/20/18 20:49 08:05 03:35 WBC RBC Hgb Hct POC Hct RDW MPV Gran % Lymph % (Auto) [place] % (Auto) Gran # Lymph # (Auto) Band Neutrophils % 21 H Lymphocytes % 8 L WBC Morphology Abnorm A Toxic Granulation 1+ A D-Dimer VBG Lactic Acid Sodium 132 L POC Chloride Chloride Anion Gap POC Creatinine Glucose 238 H 119 H POC Glucose Hemoglobin A1c Osmolality Calcium 7.7 L 7.6 L POC WB Ioniz Calcium Phosphorus 1.9 L 1.8 L Magnesium 1.3 L 1.5 L GGT 91 H 74 H Alkaline Phosphatase 319 H 282 H Lactate Dehydrogenase 262 H NT-Pro-B Natriuret Pep Albumin 1.8 L 1.9 L Globulin 5.1 H 4.5 H Albumin/Globulin Ratio 0.4 L 0.4 L Prealbumin Lipase Beta-Hydroxybutyrate Urine Glucose (UA) Urine Ketones Urine Occult Blood Urine RBC 07/20/18 07/20/18 07/20/18 03:35 03:35 01:25 WBC 16.2 H RBC 3.87 L Hgb 11.9 L Hct 36.4 L POC Hct RDW MPV Gran % 84.1 H Lymph % (Auto) 12.9 L [place] % (Auto) Gran # 13.6 H Lymph # (Auto) Band Neutrophils % Lymphocytes % WBC Morphology Toxic Granulation D-Dimer VBG Lactic Acid 2.5 H Sodium POC Chloride Chloride Anion Gap POC Creatinine Glucose POC Glucose Hemoglobin A1c 11.9 H Osmolality Calcium POC WB Ioniz Calcium Phosphorus Magnesium GGT Alkaline Phosphatase Lactate Dehydrogenase NT-Pro-B Natriuret Pep Albumin Globulin Albumin/Globulin Ratio Prealbumin 3.0 L Lipase Beta-Hydroxybutyrate Urine Glucose (UA) Urine Ketones Urine Occult Blood Urine RBC 07/20/18 07/19/18 07/19/18 00:58 22:15 20:49 WBC RBC Hgb Hct POC Hct 40.0 L RDW MPV Gran % Lymph % (Auto) [place] % (Auto) Gran # Lymph # (Auto) Band Neutrophils % Lymphocytes % WBC Morphology Toxic Granulation D-Dimer VBG Lactic Acid Sodium POC Chloride 94 L Chloride Anion Gap POC Creatinine 0.6 L Glucose POC Glucose 268 H Hemoglobin A1c Osmolality Calcium POC WB Ioniz Calcium 0.99 L Phosphorus Magnesium GGT Alkaline Phosphatase Lactate Dehydrogenase NT-Pro-B Natriuret Pep Albumin Globulin Albumin/Globulin Ratio Prealbumin Lipase Beta-Hydroxybutyrate 3.25 H Urine Glucose (UA) >=500 A Urine Ketones 20 A Urine Occult Blood 0.2 A Urine RBC 5 H 07/19/18 07/19/18 07/19/18 20:49 20:49 20:49 WBC RBC Hgb Hct POC Hct RDW MPV Gran % Lymph % (Auto) [place] % (Auto) Gran # Lymph # (Auto) Band Neutrophils % Lymphocytes % WBC Morphology Toxic Granulation D-Dimer 1.24 H VBG Lactic Acid 2.7 H Sodium 125 L POC Chloride Chloride 85 L Anion Gap 17.0 H POC Creatinine Glucose 709 H* POC Glucose Hemoglobin A1c Osmolality Calcium 8.0 L POC WB Ioniz Calcium Phosphorus Magnesium GGT Alkaline Phosphatase 326 H Lactate Dehydrogenase NT-Pro-B Natriuret Pep 781.5 H Albumin 2.0 L Globulin 5.4 H Albumin/Globulin Ratio 0.4 L Prealbumin Lipase < 7 L Beta-Hydroxybutyrate Urine Glucose (UA) Urine Ketones Urine Occult Blood Urine RBC 07/19/18 20:49 WBC 21.6 H RBC 4.33 L Hgb 13.1 L Hct POC Hct RDW 14.6 H MPV 10.5 H Gran % 92.8 H Lymph % (Auto) 3.8 L [place] % (Auto) Gran # 20.0 H Lymph # (Auto) 0.8 L Band Neutrophils % Lymphocytes % WBC Morphology Toxic Granulation D-Dimer VBG Lactic Acid Sodium POC Chloride Chloride Anion Gap POC Creatinine Glucose POC Glucose Hemoglobin A1c Osmolality Calcium POC WB Ioniz Calcium Phosphorus Magnesium GGT Alkaline Phosphatase Lactate Dehydrogenase NT-Pro-B Natriuret Pep Albumin Globulin Albumin/Globulin Ratio Prealbumin Lipase Beta-Hydroxybutyrate Urine Glucose (UA) Urine Ketones Urine Occult Blood Urine RBC Meds: Medications Acetaminophen (Tylenol) 650 mg PO Q4-6HP PRN PRN Reason: PAIN/FEVER > 101 Last Admin: 07/21/18 07:29 Dose: 650 mg Documented by: Albuterol/Ipratropium (Duoneb) 3 ml NEB Q6HRT [facility] Last Admin: 07/21/18 07:36 Dose: 3 ml Documented by: Diagnostic Test (Pha) (Accu-Chek) 1 each FS ACHS [facility] Last Admin: 07/21/18 07:31 Dose: 1 each Documented by: Duloxetine HCl (Cymbalta) 60 mg PO HS [facility] Last Admin: 07/20/18 20:55 Dose: 60 mg Documented by: Enoxaparin Sodium (Lovenox) 30 mg SQ DAILY [facility] Last Admin: 07/21/18 07:30 Dose: 30 mg Documented by: Gabapentin (Neurontin) 600 mg PO TID [facility] Last Admin: 07/21/18 07:29 Dose: 600 mg Documented by: Piperacillin Sod/Tazobactam (Sod 3.375 gm/ Dextrose) 50 mls @ 100 mls/hr IV Q6H [facility] Last Infusion: 07/21/18 06:00 Dose: Infused Documented by: Potassium Chloride 40 meq/ (Dextrose) 520 mls @ 130 mls/hr IV ONCE PRN PRN Reason: Potassium < 3 Magnesium Sulfate (Magnesium Sulfate) 2 gm in 50 mls @ 50 mls/hr IV ONCE PRN PRN Reason: Magnesium </= 1.6 Last Infusion: 07/20/18 09:00 Dose: Infused Documented by: Vancomycin HCl 500 mg/ Sodium (Chloride) 100 mls @ 100 mls/hr IV DAILY [facility] Last Infusion: 07/21/18 05:30 Dose: Infused Documented by: Insulin Glargine (Lantus) 20 unit SQ DAILY [facility] Last Admin: 07/20/18 09:14 Dose: 20 unit Documented by: Insulin Human Lispro (Humalog) 0 unit SQ ACHS [facility]; Protocol Last Admin: 07/21/18 07:40 Dose: Not Given Documented by: Ondansetron HCl (Zofran) 4 mg IV Q4-6HP PRN PRN Reason: Nausea And Vomiting Pantoprazole Sodium (Protonix) 40 mg PO QAMAC [facility] Last Admin: 07/21/18 07:29 Dose: 40 mg Documented by: Potassium Chloride (Kdur) 40 meq PO ONCE PRN PRN Reason: Potassium is 3-3.5 Potassium Chloride (Kdur) 40 meq PO ONCE PRN PRN Reason: Potassium < 3 Fluticasone/Salmeterol (Advair 250-50 Diskus) 2 puff INH BID [facility] Last Admin: 07/21/18 07:15 Dose: Not Given Documented by: Sodium Chloride (Saline Flush) 10 ml IV Q8 [facility] Last Admin: 07/21/18 05:30 Dose: Not Given Documented by: Tamsulosin HCl (Flomax) 0.4 mg PO HS [facility] Last Admin: 07/20/18 20:55 Dose: 0.4 mg Documented by: Tramadol HCl (Ultram) 50 mg PO Q6HP PRN PRN Reason: Breakthrough Pain Vancomycin HCl (Vancomycin Per Pharmacy) 1 order IV UD [facility] Medical - PN: A/P - Time Spent With Patient Total time spent is greater than 50% in coordination of care (as documented) at patient's floor/unit and/or counseling patient: - Narrative A/P Narrative: A: *RLL/RML PNA: -strep urine ag neg -PCT 1.9>3.7, LA 2.7 on admit now normalized *Acute hypoxic resp failure: 2/2 above -on 1L NC *HHS w/early DKA (h/o DM w/neuropathy): Noncompliant with insulin -A1c 11.9 *Sepsis: *Pulmonary fibrosis: *Volume depletion *COPD(not on home O2): *Depression/anxiety *Severe malnutrition/weight loss/cachexia: *Pseudohyponatremia: resolved *Mild oropharyngeal dysphagia, possible esophageal dysphagia (does feel like food does get stuck sometimes) P: -IVF d/c -off insulin gtt to basal (titrate) and SSI -replete electrolytes -Vanco/Zosyn, further recs per ID -Pending BC/SC -Trend PCT -IS/Acapella, home IH's -ST -decrease gabapentin for drowsiness -Dietary consult, Glucerna supplement -f/u with [facility] for EGD(also for ?esophageal dysphagia)/Colonoscopy occult malignancy -ppx: Lovenox No Code Medical - PN: Qual - Stroke Symptom Onset Unknown: No - VTE Deep Vein Thrombosis/Pulmonary Embolism Present on Admission: No
[2018-07-21 08:42] LABS: Anisocytosis FEW (NONE SEEN); Band Neutrophils % 8 % (0-10); Eosinophils % (Manual) 1 % (0-7); Lymphocytes % 8 % (15-49); Monocytes % (Manual) 1 % (1-12); Platelet Estimate NORMAL (NORMAL); RBC Morphology ABNORM (NORMAL); Segmented Neutrophils % 82 % (38-78)
[2018-07-21] MEDS ORDERED: INSULIN GLARGINE, HUMAN 1 UNIT/0.01 ML SQ SCH (09:00)
[2018-07-21] MEDS ORDERED: LEVOFLOXACIN 750 MG/150 ML BAG IV SCH (09:00)
[2018-07-21] MEDS ORDERED: MEROPENEM 1 GM in 0.9 % SODIUM CHLORIDE 50 ML IV SCH (09:00)
[2018-07-21] MEDS: VANCOMYCIN 500 MG in 0.9 % SODIUM CHLORIDE 100 ML IV SCH (09:46)
[2018-07-21] MEDS ORDERED: 0.9 % SODIUM CHLORIDE 250 ML IV ONE (11:44)
[2018-07-21] MEDS ORDERED: 0.9 % SODIUM CHLORIDE 1,000 ML IV SCH (11:45)
--- NOTE | 2018-07-21 18:54 | Infectious Disease Consult ---
History of Present Illness Patient information: Note initiated : 07/21/18 at 6:38 pm Service Date, if different from initiated Date: [] Patient: Solomon Mercado 63 y/o M admitted on 07/20/18 for Shortness of breath. Chief Complaint: [] Consult date: 07/21/18 Requesting Physician: Rakesh Pedroza Reason for Consult: Rt sided pneumonia Chief complaint: I felt short of breath and weak History of present illness: 63 year old man with PMHx of: - chronic interstitial lung disease (Usual Initerstitial Pneumonia; based on CT findings in 2017), not on any immunosuppressive therapy - chronic smoking - DM2, A1C ~ 11 - recently discharged from [facility] in 06/2018 Pt was admitted for 1 week hx of worsening shortness of breath, increased sputum production and feeling weak. Pt also reported decline in his appetite. He also endorsed about 40 lbs wt loss in last 1 year. He was admitted in May for similar presentation he was supposed to get a follow-up EGD and colonoscopy for significant weight loss and cachexia but pt didnot follow up. Per pt, he misses his insulin several days a week, his blood sugars run typically between 200-300. He smokes about 1-2 cig/day. At admission, pt had low grade fever, elev WBC and Xray had shown right sided lobar pneumonia. Blood and urine Cx were sent. Sputum Cx were also ordered. Pt was started on IV Vanc and IV Zosyn. Due to increasing WBC and increase in Procalcitonin, pt was switched by primary team to IV Meropenem while continuing IV Vanc. At time of my visit, pt was lying in th bed. He reported feeling better than at admission, with decrease in amount of sputum production and improvement in SOB. He endorsed right sided lowed chest pain, worse with deep breathing. Review of Systems All systems PM: reviewed and no additional remarkable complaints except as stated Past History Past family history: not pertinent to current presentation Past social history: smoker Medications and Allergies Home Medications Medication Instructions Recorded Confirmed Type Fluticasone/Salmeterol [Advair 2 puff INH BID 08/29/15 07/19/18 History 250-50 Diskus] traMADol [Ultram] 50 mg PO Q6HP PRN #15 tablet 11/14/15 07/19/18 Rx Celecoxib [Celebrex] 50 mg PO HS 12/22/16 07/19/18 History Tamsulosin [Flomax] 0.4 mg PO HS 12/22/16 07/19/18 History DULoxetine HCL [Cymbalta] 60 mg PO HS 05/03/18 07/19/18 History Gabapentin [Neurontin] 600 mg PO TID 05/03/18 07/19/18 History Accu-Chek 1 each FS ACHS #100 strip 05/06/18 07/19/18 Rx Insulin Glargine,Hum.rec.anlog 12 unit SQ DAILY 07/19/18 07/19/18 History [Basaglar Kwikpen U-100] Allergies Allergy/AdvReac Type Severity Reaction Status Date / Time codeine AdvReac Intermediate Rash Verified 07/19/18 20:14 Physical Examination Vital signs: Temp Pulse Resp BP Pulse Ox 37.0 C 85 23 H 97/60 92 07/21/18 16:01 07/21/18 13:40 07/21/18 18:01 07/21/18 18:01 07/21/18 18:01 General appearance: no acute distress Eyes pulmonary: nonicteric ENT: oropharynx moist, other (no thrush) Effort: mildly labored Auscultation: bilateral: rales (absent breat sounds at right lung base) Cardiovascular: regular rate and rhythm Gastrointestinal: normoactive bowel sounds, soft, non-tender Integumentary: normal Extremities: no cyanosis, no edema Results - Laboratory Findings CBC and BMP: 07/21/18 03:30 07/21/18 03:30 PT/INR, D-dimer D-Dimer 1.24 ug/ml (0.00-0.40) H 07/19/18 20:49 Abnormal lab findings: Abnormal Labs 07/19/18 07/19/18 07/19/18 20:49 20:49 20:49 WBC 21.6 H RBC 4.33 L Hgb 13.1 L Hct POC Hct RDW 14.6 H MPV 10.5 H Gran % 92.8 H Lymph % (Auto) 3.8 L [place] % (Auto) Gran # 20.0 H Lymph # (Auto) 0.8 L Seg Neutrophils % Band Neutrophils % Lymphocytes % WBC Morphology Toxic Granulation RBC Morphology Anisocytosis D-Dimer 1.24 H VBG Lactic Acid Sodium 125 L POC Chloride Chloride 85 L Anion Gap 17.0 H POC Creatinine Glucose 709 H* POC Glucose Hemoglobin A1c Osmolality Calcium 8.0 L POC WB Ioniz Calcium Phosphorus Magnesium GGT Alkaline Phosphatase 326 H Lactate Dehydrogenase NT-Pro-B Natriuret Pep 781.5 H Albumin 2.0 L Globulin 5.4 H Albumin/Globulin Ratio 0.4 L Prealbumin Lipase < 7 L Beta-Hydroxybutyrate Urine Glucose (UA) Urine Ketones Urine Occult Blood Urine RBC 07/19/18 07/19/18 07/19/18 20:49 20:49 22:15 WBC RBC Hgb Hct POC Hct RDW MPV Gran % Lymph % (Auto) [place] % (Auto) Gran # Lymph # (Auto) Seg Neutrophils % Band Neutrophils % Lymphocytes % WBC Morphology Toxic Granulation RBC Morphology Anisocytosis D-Dimer VBG Lactic Acid 2.7 H Sodium POC Chloride Chloride Anion Gap POC Creatinine Glucose POC Glucose Hemoglobin A1c Osmolality Calcium POC WB Ioniz Calcium Phosphorus Magnesium GGT Alkaline Phosphatase Lactate Dehydrogenase NT-Pro-B Natriuret Pep Albumin Globulin Albumin/Globulin Ratio Prealbumin Lipase Beta-Hydroxybutyrate 3.25 H Urine Glucose (UA) >=500 A Urine Ketones 20 A Urine Occult Blood 0.2 A Urine RBC 5 H 07/20/18 07/20/18 07/20/18 00:58 01:25 03:35 WBC RBC Hgb Hct POC Hct 40.0 L RDW MPV Gran % Lymph % (Auto) [place] % (Auto) Gran # Lymph # (Auto) Seg Neutrophils % Band Neutrophils % Lymphocytes % WBC Morphology Toxic Granulation RBC Morphology Anisocytosis D-Dimer VBG Lactic Acid 2.5 H Sodium POC Chloride 94 L Chloride Anion Gap POC Creatinine 0.6 L Glucose POC Glucose 268 H Hemoglobin A1c 11.9 H Osmolality Calcium POC WB Ioniz Calcium 0.99 L Phosphorus Magnesium GGT Alkaline Phosphatase Lactate Dehydrogenase NT-Pro-B Natriuret Pep Albumin Globulin Albumin/Globulin Ratio Prealbumin 3.0 L Lipase Beta-Hydroxybutyrate Urine Glucose (UA) Urine Ketones Urine Occult Blood Urine RBC 07/20/18 07/20/18 07/20/18 03:35 03:35 08:05 WBC 16.2 H RBC 3.87 L Hgb 11.9 L Hct 36.4 L POC Hct RDW MPV Gran % 84.1 H Lymph % (Auto) 12.9 L [place] % (Auto) Gran # 13.6 H Lymph # (Auto) Seg Neutrophils % Band Neutrophils % Lymphocytes % WBC Morphology Toxic Granulation RBC Morphology Anisocytosis D-Dimer VBG Lactic Acid Sodium 132 L POC Chloride Chloride Anion Gap POC Creatinine Glucose 119 H 238 H POC Glucose Hemoglobin A1c Osmolality Calcium 7.6 L 7.7 L POC WB Ioniz Calcium Phosphorus 1.8 L 1.9 L Magnesium 1.5 L 1.3 L GGT 74 H 91 H Alkaline Phosphatase 282 H 319 H Lactate Dehydrogenase 262 H NT-Pro-B Natriuret Pep Albumin 1.9 L 1.8 L Globulin 4.5 H 5.1 H Albumin/Globulin Ratio 0.4 L 0.4 L Prealbumin Lipase Beta-Hydroxybutyrate Urine Glucose (UA) Urine Ketones Urine Occult Blood Urine RBC 07/20/18 07/20/18 07/21/18 20:49 20:49 03:30 WBC 18.1 H RBC 3.95 L Hgb 12.1 L Hct 38.0 L POC Hct RDW 14.8 H MPV 10.5 H Gran % 91.2 H Lymph % (Auto) 7.5 L [place] % (Auto) 0.9 L Gran # 16.6 H Lymph # (Auto) 1.4 L Seg Neutrophils % Band Neutrophils % 21 H Lymphocytes % 8 L WBC Morphology Abnorm A Toxic Granulation 1+ A RBC Morphology Anisocytosis D-Dimer VBG Lactic Acid Sodium POC Chloride Chloride Anion Gap POC Creatinine Glucose POC Glucose Hemoglobin A1c Osmolality 322 H Calcium POC WB Ioniz Calcium Phosphorus Magnesium 1.5 L GGT Alkaline Phosphatase Lactate Dehydrogenase NT-Pro-B Natriuret Pep Albumin Globulin Albumin/Globulin Ratio Prealbumin Lipase Beta-Hydroxybutyrate Urine Glucose (UA) Urine Ketones Urine Occult Blood Urine RBC 07/21/18 07/21/18 03:30 03:30 WBC RBC Hgb Hct POC Hct RDW MPV Gran % Lymph % (Auto) [place] % (Auto) Gran # Lymph # (Auto) Seg Neutrophils % 82 H Band Neutrophils % Lymphocytes % 8 L WBC Morphology Toxic Granulation RBC Morphology Abnorm A Anisocytosis Few A D-Dimer VBG Lactic Acid Sodium POC Chloride Chloride Anion Gap POC Creatinine Glucose 48 L POC Glucose Hemoglobin A1c Osmolality Calcium 7.1 L POC WB Ioniz Calcium Phosphorus Magnesium GGT 103 H Alkaline Phosphatase 324 H Lactate Dehydrogenase NT-Pro-B Natriuret Pep Albumin 1.4 L Globulin 5.2 H Albumin/Globulin Ratio 0.3 L Prealbumin Lipase Beta-Hydroxybutyrate Urine Glucose (UA) Urine Ketones Urine Occult Blood Urine RBC Microbiology: Microbiology 07/21/18 12:47 Sputum - Expectorated Fungal Smear - Final 07/21/18 12:47 Sputum - Expectorated Gram Stain - Final 07/19/18 22:20 Blood Blood Culture - Preliminary 07/19/18 22:15 Blood Blood Culture - Preliminary 07/20/18 02:25 Nose MRSA (PCR) - Final MRSA PCR positive Assessment and Plan - Narrative A/P Narrative: A: 1. 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 - currently on IV Vanc and IV ZOsyn - given lack of prev Hx of MDROs, Meropenem might not be indicated 2. MRSA carrier: - nasal screen positive Recommendations: - continue IV Vanc per pharmacy assisted dosing. Vanc trough target 10-20 - Stop IV Meropenem. Start IV Zosyn 3.375 gm q6 hrs - await sputum Cx, will deescalate based on sensitivities. Based on GS and MRSA carriage, I am worried about MRSA as cause of pneumonia - MRSA decolonization as: 2% intranasal mupirocin bid for 5 days 2% CHG wipes to be applied below neck once daily x 5 days - will repeat Procalcitonin after 48 hrs - will also send for sputum cytology to r/o lung cancer - pt will benefit from Pulmonary follow up for UIP will follow Michael Randolph M.D. Infectious diseases
[2018-07-21] MEDS: TAMSULOSIN 0.4 MG CAPSULE PO SCH (19:53)
[2018-07-21] MEDS: DULoxetine 30 MG CAPSULE PO SCH (19:53)
[2018-07-21] MEDS: MUPIROCIN OINT 2% 22GM TOPICAL SCH (19:53)
[2018-07-21] MEDS: traMADol 50 MG TABLET PO PRN (22:52)
[2018-07-21] MEDS ORDERED: methylPREDNISolone SOD SUCC 125 MG/2 ML VIAL IV ONE (23:39)
[2018-07-21] MEDS ORDERED: LORazepam 2 MG/ML VIAL IV ONE (23:43)
[2018-07-21] MEDS ORDERED: LORazepam 2 MG/ML VIAL ONE (23:54)
[2018-07-21] MEDS ORDERED: LORazepam 2 MG/ML VIAL IV PRN (23:56)
[2018-07-21] MEDS ORDERED: methylPREDNISolone SOD SUCC 125 MG/2 ML VIAL ONE (23:56)
[2018-07-21] MEDS ORDERED: FUROSEMIDE 40 MG/4 ML VIAL IV ONE (23:59)
[2018-07-21] MEDS ORDERED: ALBUMIN HUMAN 12.5 GM/50 ML BAG IV ONE (23:59)
[2018-07-22] MEDS ORDERED: FUROSEMIDE 40 MG/4 ML VIAL IV ONE ×2 (00:03→13:32)
[2018-07-22] MEDS: PIPERACILLIN SODIUM/TAZOBACTAM 3.375 GM in DEXTROSE 5% IN WATER 50 ML IV SCH ×2 (00:04→05:27)
[2018-07-22] MEDS ORDERED: ALBUMIN HUMAN 50 ML IV ONE (00:04)
[2018-07-22] MEDS: IPRATROPIUM/ALBUTEROL 3 ML AMPUL.NEB NEB SCH ×5 (01:29→23:48)
[2018-07-22] MEDS: 0.9 % SODIUM CHLORIDE 10 ML SYRINGE IV SCH ×3 (05:27→23:46)
[2018-07-22 05:49] LABS: Basophils # (Auto) 0 K/mcL (0.0-0.3); Basophils % (Auto) 0 % (0.0-2.0); Eosinophils # (Auto) 0 K/mcL (0.0-0.7); Eosinophils % (Auto) 0.1 % (0.0-7.0); Lymphocytes # (Auto) 0.5 K/mcL (1.5-4.8); Lymphocytes % (Auto) 2.1 % (15.5-49.0); Mean Cell Volume 96.2 fL (80.0-100.0); Mean Corpuscular HGB Conc 32.4 g/dL (31.0-36.0); Monocytes # (Auto) 0.2 K/mcL (0.1-0.9); Monocytes % (Auto) 0.8 % (1.0-12.0); Platelet Count 298 K/mcL (140-440); RBC 3.58 M/mcL (4.50-5.90); Red Cell Distribution Width 14.6 % (11.5-14.5)
--- NOTE | 2018-07-22 05:59 | XRay Report ---
INDICATION: Worsening hypoxia TECHNIQUE: AP chest x-ray,portable semiupright COMPARISON: previous chest x-ray dated 07/19/2018. Previous chest CT scans dated 07/19/2018 and 05/03/2018 FINDINGS:Increasing bilateral diffuse pulmonary parenchymal infiltrates. Infiltrates are extensive and diffuse with right basilar consolidation. Infiltrates are worse than on 07/19/2018. Patient has a history of severe underlying lung disease. Superimposed pneumonia is suspected. Pulmonary edema or ARDS are also possible. IMPRESSION: 1. Increasing bilateral diffuse pulmonary parenchymal infiltrates 2. Findings were sent on 07/19/2018 Interpreted and Authenticated by: Shakeel Holm 07/22/18
[2018-07-22 06:16] LABS: Blood Urea Nitrogen 24 mg/dl (8-23)
--- NOTE | 2018-07-22 07:34 | Internal Med Progress Note ---
Medical - PN: Subj Patient information: Note initiated : 07/22/18 at 7:28 am Service Date, if different from initiated Date: [] Patient: Solomon Mercado 63 y/o M admitted on 07/20/18 for Shortness of breath. Chief Complaint: [] Interval history: Mr. Mercado is a 63 year old M Exam comes in with generalized weakness shortness breath increase in the past couple weeks and productive cough of valles sputum over the past couple weeks he had decreased appetite and very weak. Also has diarrhea but is somewhat chronic. He was admitted in May for similar presentation he was supposed to get a follow-up EGD and colonoscopy for significant weight loss and cachexia he did not do that. He misses his insulin several days a week says his blood sugars run typically between 200-60, he has COPD and is still smoking but is cutting down. That headache some nausea. Feels dehydrated Evaluated in the ED and found to have pneumonia and HHS in line depletion 07/20 Feeling better today. Still tired. Does have productive cough and and shortness of breath is improving. Now off insulin drip. 07/21 Tired this morning and sleeping when I visited him at 11 AM. But he was easily arousable and he was alert and oriented and followed commands. Still has a bit of a cough and some shortness of breath but improving. No other acute issues or complaints. No issues overnight. 07/22 Rough night late last night with increased respiratory compromise was put on Vapotherm eventually. Chest x-ray with increasing diffuse infiltrates, did give dose of Lasix with good urine output but no significant improvement in oxygen requirement. Although he does feel much better this morning and breathing better but is on Vapotherm. Productive cough present, shortness of breath. Review of Systems: denies headache/fever/chills/nausea/vomiting/chest or abdominal pain. Otherwise see above. - Constitutional Vitals: Vital Signs Temp Pulse Resp BP Pulse Ox 98.8 F 86 23 H 124/77 89 L 07/22/18 04:01 07/21/18 19:04 07/22/18 06:01 07/22/18 06:01 07/22/18 06:01 Period Temp Pulse Resp BP Sys/Lugo Pulse Ox Last 24 Hr 98.4 F-99.9 F 85-96 13-31 81-145/51-84 89-97 Intake and Output 02/20/19 02/21/19 02/21/19 21:59 05:59 13:59 Intake Total 540 1340 Output Total 475 2315 120 Balance 65 -975 -120 Weight 47.4 kg Intake & Output: Intake & Output 07/21/18 07/22/18 07/22/18 21:59 05:59 13:59 Intake Total 540 1340 Output Total 475 2315 120 Balance 65 -975 -120 Weight 47.4 kg Intake: IV 50 1100 Sodium Chloride 0.9% 1,000 ml @ 1000 100 mls/hr IV .Q10H TOMMY Rx#: [id number] Buminate 50 ml @ 0 mls/hr IV . 50 STK-MED ONE Rx#:[id number] Zosyn 3.375 gm In Dextrose 5% 50 50 in Water 50 ml @ 100 mls/hr IV Q6H TOMMY Rx#:[id number] Oral 490 240 Output: Urine Catheter Amount 2315 120 Uretheral ([place]) 750 Void Amount 475 Other: Meal Dinner Percent of Meal Consumed 100% Feeding Ability Assist with Tray Set Up Urine Appearance Clear Clear Uretheral ([place]) Clear Urine Color Dark Yellow Pale Pale Uretheral ([place]) Dark Yellow Urine Odor Strong Stool Size Moderate Stool Color Brown Stool Consistency Formed Exam: General: awake, No acute Distress, cachectic Eyes/N/T: EOMI, Head/Neck: neck supple, CV: RRR, No murmurs, Pulm: Fine rales bilaterally as well as right-sided rhonchi, no wheezing Abd: soft, nontender, +BS x4 Ext: no cyanosis/edema LE's Neuro: aler, no focal deficits, moves all extremities, Skin: warm/dry Medical - PN: Obj Da - Labs CBC & Chem 7: 07/22/18 03:40 07/22/18 03:40 Labs: Abnormal Lab Results 07/22/18 07/22/18 07/21/18 03:40 03:40 03:30 WBC 24.3 H RBC 3.58 L Hgb 11.1 L Hct 34.4 L POC Hct RDW 14.6 H MPV Gran % 97.0 H Lymph % (Auto) 2.1 L [place] % (Auto) 0.8 L Gran # 23.6 H Lymph # (Auto) 0.5 L Seg Neutrophils % 82 H Band Neutrophils % Lymphocytes % 8 L WBC Morphology Toxic Granulation RBC Morphology Abnorm A Anisocytosis Few A D-Dimer VBG Lactic Acid Sodium POC Chloride Chloride Anion Gap BUN 24 H POC Creatinine Glucose 54 L POC Glucose Hemoglobin A1c Osmolality Calcium 7.4 L POC WB Ioniz Calcium Phosphorus Magnesium GGT Alkaline Phosphatase Lactate Dehydrogenase NT-Pro-B Natriuret Pep Albumin Globulin Albumin/Globulin Ratio Prealbumin Lipase Beta-Hydroxybutyrate Urine Glucose (UA) Urine Ketones Urine Occult Blood Urine RBC 07/21/18 07/21/18 07/21/18 03:30 03:30 00:10 WBC 18.1 H RBC 3.95 L Hgb 12.1 L Hct 38.0 L POC Hct RDW 14.8 H MPV 10.5 H Gran % 91.2 H Lymph % (Auto) 7.5 L [place] % (Auto) 0.9 L Gran # 16.6 H Lymph # (Auto) 1.4 L Seg Neutrophils % Band Neutrophils % Lymphocytes % WBC Morphology Toxic Granulation RBC Morphology Anisocytosis D-Dimer VBG Lactic Acid Sodium POC Chloride Chloride Anion Gap BUN POC Creatinine Glucose 48 L POC Glucose Hemoglobin A1c Osmolality Calcium 7.1 L POC WB Ioniz Calcium Phosphorus Magnesium GGT 103 H Alkaline Phosphatase 324 H Lactate Dehydrogenase NT-Pro-B Natriuret Pep 1002.0 H Albumin 1.4 L Globulin 5.2 H Albumin/Globulin Ratio 0.3 L Prealbumin Lipase Beta-Hydroxybutyrate Urine Glucose (UA) Urine Ketones Urine Occult Blood Urine RBC 07/20/18 07/20/18 07/20/18 20:49 20:49 08:05 WBC RBC Hgb Hct POC Hct RDW MPV Gran % Lymph % (Auto) [place] % (Auto) Gran # Lymph # (Auto) Seg Neutrophils % Band Neutrophils % 21 H Lymphocytes % 8 L WBC Morphology Abnorm A Toxic Granulation 1+ A RBC Morphology Anisocytosis D-Dimer VBG Lactic Acid Sodium POC Chloride Chloride Anion Gap BUN POC Creatinine Glucose 238 H POC Glucose Hemoglobin A1c Osmolality 322 H Calcium 7.7 L POC WB Ioniz Calcium Phosphorus 1.9 L Magnesium 1.5 L 1.3 L GGT 91 H Alkaline Phosphatase 319 H Lactate Dehydrogenase NT-Pro-B Natriuret Pep Albumin 1.8 L Globulin 5.1 H Albumin/Globulin Ratio 0.4 L Prealbumin Lipase Beta-Hydroxybutyrate Urine Glucose (UA) Urine Ketones Urine Occult Blood Urine RBC 07/20/18 07/20/18 07/20/18 03:35 03:35 03:35 WBC 16.2 H RBC 3.87 L Hgb 11.9 L Hct 36.4 L POC Hct RDW MPV Gran % 84.1 H Lymph % (Auto) 12.9 L [place] % (Auto) Gran # 13.6 H Lymph # (Auto) Seg Neutrophils % Band Neutrophils % Lymphocytes % WBC Morphology Toxic Granulation RBC Morphology Anisocytosis D-Dimer VBG Lactic Acid Sodium 132 L POC Chloride Chloride Anion Gap BUN POC Creatinine Glucose 119 H POC Glucose Hemoglobin A1c 11.9 H Osmolality Calcium 7.6 L POC WB Ioniz Calcium Phosphorus 1.8 L Magnesium 1.5 L GGT 74 H Alkaline Phosphatase 282 H Lactate Dehydrogenase 262 H NT-Pro-B Natriuret Pep Albumin 1.9 L Globulin 4.5 H Albumin/Globulin Ratio 0.4 L Prealbumin 3.0 L Lipase Beta-Hydroxybutyrate Urine Glucose (UA) Urine Ketones Urine Occult Blood Urine RBC 07/20/18 07/20/18 07/19/18 01:25 00:58 22:15 WBC RBC Hgb Hct POC Hct 40.0 L RDW MPV Gran % Lymph % (Auto) [place] % (Auto) Gran # Lymph # (Auto) Seg Neutrophils % Band Neutrophils % Lymphocytes % WBC Morphology Toxic Granulation RBC Morphology Anisocytosis D-Dimer VBG Lactic Acid 2.5 H Sodium POC Chloride 94 L Chloride Anion Gap BUN POC Creatinine 0.6 L Glucose POC Glucose 268 H Hemoglobin A1c Osmolality Calcium POC WB Ioniz Calcium 0.99 L Phosphorus Magnesium GGT Alkaline Phosphatase Lactate Dehydrogenase NT-Pro-B Natriuret Pep Albumin Globulin Albumin/Globulin Ratio Prealbumin Lipase Beta-Hydroxybutyrate Urine Glucose (UA) >=500 A Urine Ketones 20 A Urine Occult Blood 0.2 A Urine RBC 5 H 07/19/18 07/19/18 07/19/18 20:49 20:49 20:49 WBC RBC Hgb Hct POC Hct RDW MPV Gran % Lymph % (Auto) [place] % (Auto) Gran # Lymph # (Auto) Seg Neutrophils % Band Neutrophils % Lymphocytes % WBC Morphology Toxic Granulation RBC Morphology Anisocytosis D-Dimer VBG Lactic Acid 2.7 H Sodium 125 L POC Chloride Chloride 85 L Anion Gap 17.0 H BUN POC Creatinine Glucose 709 H* POC Glucose Hemoglobin A1c Osmolality Calcium 8.0 L POC WB Ioniz Calcium Phosphorus Magnesium GGT Alkaline Phosphatase 326 H Lactate Dehydrogenase NT-Pro-B Natriuret Pep 781.5 H Albumin 2.0 L Globulin 5.4 H Albumin/Globulin Ratio 0.4 L Prealbumin Lipase < 7 L Beta-Hydroxybutyrate 3.25 H Urine Glucose (UA) Urine Ketones Urine Occult Blood Urine RBC 07/19/18 07/19/18 20:49 20:49 WBC 21.6 H RBC 4.33 L Hgb 13.1 L Hct POC Hct RDW 14.6 H MPV 10.5 H Gran % 92.8 H Lymph % (Auto) 3.8 L [place] % (Auto) Gran # 20.0 H Lymph # (Auto) 0.8 L Seg Neutrophils % Band Neutrophils % Lymphocytes % WBC Morphology Toxic Granulation RBC Morphology Anisocytosis D-Dimer 1.24 H VBG Lactic Acid Sodium POC Chloride Chloride Anion Gap BUN POC Creatinine Glucose POC Glucose Hemoglobin A1c Osmolality Calcium POC WB Ioniz Calcium Phosphorus Magnesium GGT Alkaline Phosphatase Lactate Dehydrogenase NT-Pro-B Natriuret Pep Albumin Globulin Albumin/Globulin Ratio Prealbumin Lipase Beta-Hydroxybutyrate Urine Glucose (UA) Urine Ketones Urine Occult Blood Urine RBC Meds: Medications Acetaminophen (Tylenol) 650 mg PO Q4-6HP PRN PRN Reason: PAIN/FEVER > 101 Last Admin: 07/21/18 18:45 Dose: 650 mg Documented by: Albuterol/Ipratropium (Duoneb) 3 ml NEB Q6HRT [facility] Last Admin: 07/22/18 01:29 Dose: 3 ml Documented by: Diagnostic Test (Pha) (Accu-Chek) 1 each FS ACHS [facility] Last Admin: 07/21/18 20:11 Dose: 1 each Documented by: Duloxetine HCl (Cymbalta) 60 mg PO HS [facility] Last Admin: 07/21/18 19:53 Dose: 60 mg Documented by: Enoxaparin Sodium (Lovenox) 30 mg SQ DAILY [facility] Last Admin: 07/21/18 07:30 Dose: 30 mg Documented by: Gabapentin (Neurontin) 200 mg PO TID [facility] Potassium Chloride 40 meq/ (Dextrose) 520 mls @ 130 mls/hr IV ONCE PRN PRN Reason: Potassium < 3 Magnesium Sulfate (Magnesium Sulfate) 2 gm in 50 mls @ 50 mls/hr IV ONCE PRN PRN Reason: Magnesium </= 1.6 Last Infusion: 07/20/18 09:00 Dose: Infused Documented by: Vancomycin HCl 500 mg/ Sodium (Chloride) 100 mls @ 100 mls/hr IV DAILY [facility] Last Infusion: 07/21/18 10:46 Dose: Infused Documented by: Piperacillin Sod/Tazobactam (Sod 3.375 gm/ Dextrose) 50 mls @ 100 mls/hr IV Q6H [facility] Last Admin: 07/22/18 05:27 Dose: 100 mls/hr Documented by: Insulin Glargine (Lantus) 14 unit SQ DAILY [facility] Last Admin: 07/21/18 09:45 Dose: 14 unit Documented by: Insulin Human Lispro (Humalog) 0 unit SQ ACHS [facility]; Protocol Last Admin: 07/21/18 20:13 Dose: 2 unit Documented by: Lorazepam (Ativan) 0.5 mg IV Q8HP PRN PRN Reason: Anxiety Mupirocin (Bactroban Oint 2%) 1 dose TOPICAL BID [facility] Last Admin: 07/21/18 19:53 Dose: 1 dose Documented by: Ondansetron HCl (Zofran) 4 mg IV Q4-6HP PRN PRN Reason: Nausea And Vomiting [facility]oprazole [facility]) [facility] Last Admin: 07/21/18 07:29 Dose: 40 mg Documented by: Potassium Chloride (Kdur) 40 meq PO ONCE PRN PRN Reason: Potassium is 3-3.5 Potassium Chloride (Kdur) 40 meq PO ONCE PRN PRN Reason: Potassium < 3 Prednisone (Prednisone) 40 mg PO [facility] Fluticasone/Salmeterol (Advair 250-50 Diskus) 2 puff INH BID [facility] Last Admin: 07/21/18 19:54 Dose: Not Given Documented by: Sodium Chloride (Saline Flush) 10 ml IV Q8 [facility] Last Admin: 07/22/18 05:27 Dose: 10 ml Documented by: Tamsulosin HCl (Flomax) 0.4 mg PO HS [facility] Last Admin: 07/21/18 19:53 Dose: 0.4 mg Documented by: Tramadol HCl (Ultram) 50 mg PO Q6HP PRN PRN Reason: Breakthrough Pain Last Admin: 07/21/18 22:52 Dose: 50 mg Documented by: Vancomycin HCl (Vancomycin Per Pharmacy) 1 order IV UD [facility] Medical - PN: A/P - Time Spent With Patient Total time spent is greater than 50% in coordination of care (as documented) at patient's floor/unit and/or counseling patient: - Narrative A/P Narrative: A: *RLL/RML PNA: concern for ARDS -SC growing Staph Aureus -PCT/leukocytosis trending, LA 2.7 on admit now normalized *Severe Pulmonary fibrosis/traction Bronchiectasis: *Acute hypoxic resp failure: 2/2 above - requiring high-flow currently -did try does of lasix w/o significant improvement *HHS w/early DKA (h/o DM w/neuropathy): Noncompliant with insulin -A1c 11.9 -labile BG *Sepsis: *Volume depletion: resolved *COPD(not on home O2): *Depression/anxiety *Severe malnutrition/weight loss/cachexia: *chronic anemia: *Mild oropharyngeal dysphagia, possible esophageal dysphagia (does feel like food does get stuck sometimes) P: -Vanco/Zosyn, per ID -consult Pulm -Pending final BC/SC, sputum cytology also pending -Trend PCT -IS/Acapella, home IH's -basal (titrate, decrease today) and SSI -replete electrolytes -ST -decreased gabapentin for drowsiness -Dietary consult, Glucerna supplement -f/u with [facility] for EGD(also for ?esophageal dysphagia)/Colonoscopy occult malignancy -ppx: Lovenox No Code Medical - PN: Qual - Stroke Symptom Onset Unknown: No - VTE Deep Vein Thrombosis/Pulmonary Embolism Present on Admission: No
[2018-07-22] MEDS ORDERED: predniSONE 20 MG TABLET PO SCH (08:00)
[2018-07-22 08:34] LABS: Band Neutrophils % 44 % (0-10); Dohle Bodies FEW (NONE SEEN); Eosinophils % (Manual) 1 % (0-7); Hypochromasia FEW (NONE SEEN); Lymphocytes % 1 % (15-49); Metamyelocytes % 1 % (0-0); Platelet Estimate NORMAL (NORMAL); RBC Morphology ABNORM (NORMAL); Segmented Neutrophils % 52 % (38-78); Toxic Granulation 1+ (NONE SEEN)
--- NOTE | 2018-07-22 08:34 | XRay Report ---
INDICATION: Hypoxia TECHNIQUE: AP chest x-ray,portable semiupright COMPARISON: Previous chest x-rays dated 07/21/2018, 07/19/2018 FINDINGS:History of severe underlying lung disease. His pulmonary parenchymal infiltrates, worst at the right lung base. Findings are worse than on 07/19/2018. Etiology of the infiltrates is not certain. Findings may be due to pneumonia, pulmonary edema, ARDS. No evidence for significant pleural effusion. IMPRESSION: Increasing diffuse pulmonary parenchymal infiltrates Interpreted and Authenticated by: Shakeel Holm 07/22/18
[2018-07-22] MEDS ORDERED: INSULIN GLARGINE, HUMAN 1 UNIT/0.01 ML SQ SCH (09:00)
[2018-07-22] MEDS: VANCOMYCIN 500 MG in 0.9 % SODIUM CHLORIDE 100 ML IV SCH (09:00)
--- NOTE | 2018-07-22 09:35 | Infectious Disease Prog Note ---
Subjective Patient information: Note initiated : 07/22/18 at 9:25 am Service Date, if different from initiated Date: [] Patient: Solomon Mercado 63 y/o M admitted on 07/20/18 for Shortness of breath. Chief Complaint: [] Interval history: Pt had acute respiratory distress last night needing increased O2 requirements. Denied any fevers, chills, n/v/diarrhea. Sputum production minimal. When asked about his nails, he mentions that they have recently become curved, but werenot like this many years ago. he endorses getting nasal mupirocin and below neck chlorhexidine wipes. Objective Objective Narrative: ao x 3, in nad no nasal flaring +ve clubbing chest has b/l decreased to absent BS at bases, has inspiratory and expiratory crepts at both lung bases (Rt >> Lt) s1 s2 normal bs ++, nttd no edema - Vital Signs Vital signs: Vital Signs Temp Pulse Resp BP Pulse Ox 07/22/18 07:35 84 20 07/22/18 06:01 23 H 124/77 89 L 07/22/18 05:01 25 H 114/73 92 07/22/18 04:16 16 91 07/22/18 04:01 37.1 C 13 145/84 93 07/22/18 03:01 19 117/73 92 07/22/18 02:01 16 112/69 94 07/22/18 02:00 19 92 07/22/18 01:16 19 93 07/22/18 01:10 94 07/22/18 01:01 22 125/76 97 07/22/18 00:01 37.1 C 21 133/82 90 07/21/18 23:01 20 123/84 91 07/21/18 22:01 19 108/64 07/21/18 21:01 25 H 119/61 90 07/21/18 20:01 37.2 C 24 H 108/63 90 07/21/18 20:00 20 92 07/21/18 19:04 86 20 07/21/18 19:01 24 H 105/64 92 07/21/18 18:01 23 H 97/60 92 07/21/18 17:01 21 104/64 93 07/21/18 16:41 31 H 91 07/21/18 16:01 37.0 C 22 112/62 90 07/21/18 15:01 93/51 93 07/21/18 14:01 105/56 90 07/21/18 14:00 20 93 07/21/18 13:40 85 20 90 07/21/18 13:00 17 120/68 89 L 07/21/18 12:00 36.9 C 21 103/60 90 07/21/18 11:00 19 89/56 89 L 07/21/18 10:01 21 103/64 92 Intake and Output 07/21/18 07/22/18 07/22/18 21:59 05:59 13:59 Intake Total 540 1340 Output Total 475 2315 120 Balance 65 -975 -120 Intake: IV 50 1100 Sodium Chloride 0.9% 1,000 ml @ 1000 100 mls/hr IV .Q10H TOMMY Rx#: [id number] Buminate 50 ml @ 0 mls/hr IV . 50 STK-MED ONE Rx#:[id number] Zosyn 3.375 gm In Dextrose 5% 50 50 in Water 50 ml @ 100 mls/hr IV Q6H TOMMY Rx#:[id number] Oral 490 240 Output: Urine Catheter Amount 2315 120 Uretheral ([place]) 750 Void Amount 475 Other: Meal Dinner Percent of Meal Consumed 100% Feeding Ability Assist with Tray Set Up Urine Appearance Clear Clear Uretheral ([place]) Clear Urine Color Dark Yellow Pale Pale Uretheral ([place]) Dark Yellow Urine Odor Strong Stool Size Moderate Stool Color Brown Stool Consistency Formed Weight 47.4 kg Intake & Output: Intake & Output 07/21/18 07/22/18 07/22/18 21:59 05:59 13:59 Intake Total 540 1340 Output Total 475 2315 120 Balance 65 -975 -120 Weight 47.4 kg Intake: IV 50 1100 Sodium Chloride 0.9% 1,000 ml @ 1000 100 mls/hr IV .Q10H TOMMY Rx#: [id number] Buminate 50 ml @ 0 mls/hr IV . 50 STK-MED ONE Rx#:[id number] Zosyn 3.375 gm In Dextrose 5% 50 50 in Water 50 ml @ 100 mls/hr IV Q6H TOMMY Rx#:[id number] Oral 490 240 Output: Urine Catheter Amount 2315 120 Uretheral ([place]) 750 Void Amount 475 Other: Meal Dinner Percent of Meal Consumed 100% Feeding Ability Assist with Tray Set Up Urine Appearance Clear Clear Uretheral ([place]) Clear Urine Color Dark Yellow Pale Pale Uretheral ([place]) Dark Yellow Urine Odor Strong Stool Size Moderate Stool Color Brown Stool Consistency Formed - Lab 07/22/18 03:40 07/22/18 03:40 Most recent lab results Calcium 7.4 mg/dl (8.6-10.4) L 07/22/18 03:40 Phosphorus 3.2 mg/dL (2.7-4.5) 07/21/18 03:30 Magnesium 2.1 mg/dL (1.6-2.5) 07/21/18 03:30 Microbiology 07/21/18 12:47 Sputum - Expectorated Gram Stain - Final 07/21/18 12:47 Sputum - Expectorated Sputum Culture - Preliminary Staphylococcus aureus 07/19/18 22:20 Blood Blood Culture - Preliminary 07/19/18 22:15 Blood Blood Culture - Preliminary 07/21/18 12:47 Sputum - Expectorated Fungal Smear - Final 07/20/18 02:25 Nose MRSA (PCR) - Final MRSA PCR positive Medications Active Medications: Acetaminophen (Tylenol) 650 mg PO Q4-6HP PRN PRN Reason: PAIN/FEVER > 101 Last Admin: 07/21/18 18:45 Dose: 650 mg Documented by: Admin: 07/21/18 07:29 Dose: 650 mg Documented by: [email or web address] Admin: 07/20/18 13:54 Dose: 650 mg Documented by: [id number] Admin: 07/20/18 07:38 Dose: 650 mg Documented by: [id number] Albuterol/Ipratropium (Duoneb) 3 ml NEB Q6HRT [facility] Last Admin: 07/22/18 07:35 Dose: 3 ml Documented by: Admin: 07/22/18 01:29 Dose: 3 ml Documented by: Admin: 07/21/18 19:03 Dose: 3 ml Documented by: Admin: 07/21/18 13:39 Dose: 3 ml Documented by: Admin: 07/21/18 07:36 Dose: 3 ml Documented by: Admin: 07/21/18 00:37 Dose: 3 ml Documented by: Admin: 07/21/18 00:36 Dose: Not Given Documented by: DARRELL Non-Admin Reason: Left by RT Admin: 07/20/18 13:05 Dose: 3 ml Documented by: [email or web address] Admin: 07/20/18 07:28 Dose: 3 ml Documented by: [email or web address] Admin: 07/20/18 03:16 Dose: 3 ml Documented by: DARRELL Diagnostic Test (Pha) (Accu-Chek) 1 each FS ACHS [facility] Last Admin: 07/21/18 20:11 Dose: 1 each Documented by: Admin: 07/21/18 17:30 Dose: 1 each Documented by: [email or web address] Admin: 07/21/18 12:53 Dose: 1 each Documented by: Admin: 07/21/18 07:31 Dose: 1 each Documented by: [email or web address] Admin: 07/20/18 20:54 Dose: 1 each Documented by: Admin: 07/20/18 17:15 Dose: 1 each Documented by: [id number] Admin: 07/20/18 12:11 Dose: 1 each Documented by: [email or web address] Duloxetine HCl (Cymbalta) 60 mg PO HS [facility] Last Admin: 07/21/18 19:53 Dose: 60 mg Documented by: Admin: 07/20/18 20:55 Dose: 60 mg Documented by: DARRELL Enoxaparin Sodium (Lovenox) 30 mg SQ DAILY [facility] Last Admin: 07/21/18 07:30 Dose: 30 mg Documented by: [email or web address] Admin: 07/20/18 09:14 Dose: 30 mg Documented by: PENELOPE Gabapentin (Neurontin) 200 mg PO TID [facility] Potassium Chloride 40 meq/ (Dextrose) 520 mls @ 130 mls/hr IV ONCE PRN PRN Reason: Potassium < 3 Magnesium Sulfate (Magnesium Sulfate) 2 gm in 50 mls @ 50 mls/hr IV ONCE PRN PRN Reason: Magnesium </= 1.6 Last Infusion: 07/20/18 09:00 Dose: 0 mls/hr Documented by: [email or web address] Admin: 07/20/18 08:00 Dose: 50 mls/hr Documented by: [id number] Vancomycin HCl 500 mg/ Sodium (Chloride) 100 mls @ 100 mls/hr IV DAILY [facility] Last Infusion: 07/21/18 10:46 Dose: 0 mls/hr Documented by: Admin: 07/21/18 09:46 Dose: 100 mls/hr Documented by: Infusion: 07/21/18 05:30 Dose: 0 mls/hr Documented by: Admin: 07/20/18 17:15 Dose: 100 mls/hr Documented by: [id number] Piperacillin Sod/Tazobactam (Sod 3.375 gm/ Dextrose) 50 mls @ 100 mls/hr IV Q6H [facility] Last Admin: 07/22/18 05:27 Dose: 100 mls/hr Documented by: Infusion: 07/22/18 01:29 Dose: 0 mls/hr Documented by: Admin: 07/22/18 00:04 Dose: 100 mls/hr Documented by: Infusion: 07/21/18 18:05 Dose: 0 mls/hr Documented by: Admin: 07/21/18 17:34 Dose: 100 mls/hr Documented by: Infusion: 07/21/18 12:30 Dose: 0 mls/hr Documented by: Admin: 07/21/18 12:00 Dose: 100 mls/hr Documented by: PENELOPE Insulin Glargine (Lantus) 8 unit SQ DAILY [facility] Insulin Human Lispro (Humalog) 0 unit SQ ACHS [facility]; Protocol Last Admin: 07/21/18 20:13 Dose: 2 unit Documented by: Admin: 07/21/18 17:33 Dose: Not Given Documented by: PENELOPE Non-Admin Reason: No Coverage Needed Admin: 07/21/18 13:40 Dose: 2 unit Documented by: Admin: 07/21/18 07:40 Dose: Not Given Documented by: [id number] Non-Admin Reason: No Coverage Needed Admin: 07/20/18 20:54 Dose: 12 unit Documented by: Admin: 07/20/18 17:17 Dose: 10 unit Documented by: [email or web address] Admin: 07/20/18 12:17 Dose: 8 unit Documented by: [email or web address] Lorazepam (Ativan) 0.5 mg IV Q8HP PRN PRN Reason: Anxiety Mupirocin (Bactroban Oint 2%) 1 dose TOPICAL BID [facility] Last Admin: 07/21/18 19:53 Dose: 1 dose Documented by: RAJINDER Ondansetron HCl (Zofran) 4 mg IV Q4-6HP PRN PRN Reason: Nausea And Vomiting Pantoprazole Sodium (Protonix) 40 mg PO QAMAC [facility] Last Admin: 07/21/18 07:29 Dose: 40 mg Documented by: Admin: 07/20/18 07:38 Dose: 40 mg Documented by: PENELOPE Potassium Chloride (Kdur) 40 meq PO ONCE PRN PRN Reason: Potassium is 3-3.5 Potassium Chloride (Kdur) 40 meq PO ONCE PRN PRN Reason: Potassium < 3 Prednisone (Prednisone) 40 mg PO [facility] Fluticasone/Salmeterol (Advair 250-50 Diskus) 2 puff INH BID [facility] Last Admin: 07/21/18 19:54 Dose: Not Given Documented by: RAJINDER Non-Admin Reason: Unavailable Admin: 07/21/18 07:15 Dose: Not Given Documented by: PENELOPE Non-Admin Reason: Unavailable Admin: 07/20/18 21:10 Dose: Not Given Documented by: DARRELL Non-Admin Reason: Unavailable Admin: 07/20/18 07:44 Dose: Not Given Documented by: PENELOPE Non-Admin Reason: Unavailable Sodium Chloride (Saline Flush) 10 ml IV Q8 [facility] Admin: 07/22/18 05:27 Dose: 10 ml Documented by: Admin: 07/21/18 22:59 Dose: 10 ml Documented by: Admin: 07/21/18 12:55 Dose: 10 ml Documented by: Admin: 07/21/18 05:30 Dose: Not Given Documented by: DARRELL Non-Admin Reason: Continuous IV Admin: 07/20/18 20:55 Dose: 10 ml Documented by: Admin: 07/20/18 12:12 Dose: 10 ml Documented by: Admin: 07/20/18 05:53 Dose: Not Given Documented by: DARRELL Non-Admin Reason: Continuous IV Tamsulosin HCl (Flomax) 0.4 mg PO HS [facility] Last Admin: 07/21/18 19:53 Dose: 0.4 mg Documented by: Admin: 07/20/18 20:55 Dose: 0.4 mg Documented by: DARRELL Tramadol HCl (Ultram) 50 mg PO Q6HP PRN PRN Reason: Breakthrough Pain Last Admin: 07/21/18 22:52 Dose: 50 mg Documented by: RAJINDER Vancomycin HCl (Vancomycin Per Pharmacy) 1 order IV UD TOMMY Assessment and Plan - Narrative A/P Narrative: A: 1. Rt sided lower lobe pneumonia with pre-existing UIP: currently on 10L of O2 due to recent worsening - sputum Cx growing Staph aureus, sensi pending - currently on IV Vanc and IV Zosyn - given lack of prev Hx of MDROs, Meropenem might not be indicated 2. MRSA carrier: - nasal screen positive 3. Clubbing: - sec to pt's UIP ( a type of interstitial lung disease). Recent onset raises concerns for lung cancer too Recommendations: - continue IV Vanc per pharmacy assisted dosing. Vanc trough target 10-20 - Stop IV Zosyn. Start IV Cefazolin 2 gm q8 hrs - will deescalate further based on sensitivities - MRSA decolonization as: 2% intranasal mupirocin bid for 5 days, day 2 2% CHG wipes to be applied below neck once daily x 5 days, day 2 - will repeat Procalcitonin after 48 hrs - awaiting sputum cytology to r/o lung cancer - pt will benefit from Pulmonary consult will follow Michael Randolph M.D. Infectious diseases
[2018-07-22] MEDS: ENOXAPARIN 30 MG/0.3 ML SYRINGE SQ SCH (09:47)
[2018-07-22] MEDS: ACETAMINOPHEN 325 MG TABLET PO PRN (09:48)
[2018-07-22] MEDS: traMADol 50 MG TABLET PO PRN (09:48)
[2018-07-22] MEDS: MUPIROCIN OINT 2% 22GM TOPICAL SCH ×2 (09:48→23:44)
[2018-07-22] MEDS: PANTOPRAZOLE 40 MG TABLET PO SCH (09:49)
[2018-07-22] MEDS: FLUTICASONE/SALMETEROL 250/50 INHALER #14 INH SCH (09:49)
[2018-07-22] MEDS: GABAPENTIN 300 MG CAPSULE PO SCH ×2 (09:49→13:06)
[2018-07-22] MEDS: INSULIN LISPRO 1 UNIT/0.01 ML UNIT SQ SCH ×3 (10:09→16:48)
[2018-07-22] MEDS: ceFAZolin 1 GM VIAL IV SCH ×2 (10:12→17:50)
[2018-07-22] MEDS: LORazepam 2 MG/ML VIAL IV PRN ×3 (13:35→19:00)
--- NOTE | 2018-07-22 20:46 | Consultation ---
DATE OF CONSULTATION: 07/22/2018 REQUESTING PHYSICIAN: Dr. Pedroza, hospitalist CONSULTING DOCTOR: Dr. Jung. HISTORY OF PRESENT ILLNESS: The patient is a 63-year-old gentleman admitted on 07/19 after presenting with weakness and dehydration. The patient unfortunately has known severe fibrotic lung disease. He was identified to have a dense right lower lobe radiographic infiltrate. He was identified to have methicillin-resistant staph in his sputum. He was initiated on broad- spectrum antibiotics to cover anaerobes and Staph including Zosyn and vancomycin. Cephalosporin has been added today as well. The patient has been having significant difficulty with dyspnea and shortness of breath and hypoxia. Review of the laboratory data indicates that with his therapeutic interventions, his white blood cell count had been improving, but worsened on today's evaluation, and he has been experiencing clinical decline. He is requiring 100% oxygen. His respiratory rate is in the 25 range. REVIEW OF SYSTEMS: Not available this evening. PHYSICAL EXAMINATION: GENERAL: The patient is cachectic, older than stated age appearing male in moderate respiratory distress. HEENT: Atraumatic and normocephalic. Eyes: PERRL, EOMI. Sclerae and conjunctiva clear. NECK: Supple. Carotids without apparent bruits, a little difficult to hear. LUNGS: Diffuse coarse and fine or interstitial crackles consistent with his primary fibrotic process as well as rhonchi in the right base. HEART: Difficult to hear through the chest. S1, S2 without apparent gallop or murmur. ABDOMEN: Soft. Accessory muscles of respiration are being used there. BONES, JOINTS, AND EXTREMITIES: Cachectic, but without acute changes. NEUROLOGIC: Difficult to evaluate in his sedated state, but there is no apparent focal finding. LABORATORY DATA: On review of laboratory findings again, it is noted that the white count initially was in the 20,000 range and it had improved to 16,000 prior to rising to 24,000, again today. The patient has been marginally anemic with a hemoglobin around 12. Platelet count has been normal. Electrolytes have been reasonable as has kidney function. Albumin is quite low at 1.4 on the most recent determination. Venous lactic acid elevated at 2.5, previously at 1.9 couple of days ago and not repeated. Review of CT scan demonstrates previous CT showing marked honeycombing and fibrotic process consistent with usual interstitial pneumonitis, current CT showing additional dense right lower lobe radiographic infiltrate. IMPRESSION: Pneumonia with culture positive for staph. Consider aspiration on top of severe end-stage usual interstitial pneumonitis. Unfortunately, the prognosis in the setting is poor. If one wants to try and prolong time for antibiotics to work, I would suggest the addition of BiPAP therapy to support his work of breathing if he will tolerate that. I will visit with respiratory therapist in that regard and a text message has been left for the hospitalist. Thank you for the opportunity to participate in the care of this seriously ill gentleman. If you have further questions, do not hesitate to call, text, or contact. CRISTINO:in Job ID: [id number] Doc ID: [id number] Nadeem Jung MD
[2018-07-22] MEDS ORDERED: LACTOPEROXI/GLUC OXID/POT THIO 1 EACH GEL..EA. TOPICAL PRN (21:47)
[2018-07-22] MEDS ORDERED: LORazepam 2 MG/ML VIAL IV PRN (21:47)
--- NOTE | 2018-07-22 21:54 | Event Note ---
Reviewed note from pulmonary(severe end stage pulmonary fibrosis), pt also has staph pneumonia on top of this, Pts family at bedside, noted pt overall poor condition and called patients POA, Yudi Barger. She noted that the patient has been in and out of the hospital every month for the last few days, she is the palliative care physician and POA and noted that the patient has spoken many times his desire to move on in life The patient will be made comfort care as per the wishes of the family and the expressed wishes of the patient to them. withdraw all non comfort measures, IV ativan/morphine for air hunger anxiety likely tonight after withdrawal of support.
[2018-07-22] MEDS ORDERED: 0.9 % SODIUM CHLORIDE 10 ML SYRINGE IV SCH (22:00)
--- NOTE | 2018-07-23 09:08 | Death Note ---
Discharge Sum: Prov - Provider Patient information: Note initiated : 07/23/18 at 9:06 am Service Date, if different from initiated Date: [] Patient: Solomon Mercado a 63 y/o M admitted on 07/20/18 for Shortness of breath. Chief Complaint: [] Primary care physician: Radha Bliss Admitting clinician: Rakesh Pedroza Consults: 07/19/18 Consult to Physician [CONS] Stat Comment: Consulting Provider: Rakesh Pedroza Reason For Exam: Physician to Consult 07/21/18 11:27 Consult to Physician [CONS] Routine Comment: Consulting Provider: Michael Randolph Reason For Exam: Physician to Consult 07/22/18 09:53 Consult to Physician [CONS] Routine Comment: Consulting Provider: Nadeem Jung Reason For Exam: Physician to Consult Pronouncing clinician: Mellisa Greene Discharge Sum: Diag - PCOD Cause of : Pneumonia Discharge Sum: Summary - Date and Time Date of admission: 07/20/18 02:05 Date of : 07/22/18 Time of : 22:45 - Summary Details: Mr. Mercado is a 63 year old M admitted to the hospital with generalized weakness shortness breath increased in the past couple weeks and productive cough of valles sputum over the past couple weeks he had decreased appetite and very weak. Also has diarrhea but is somewhat chronic. The patient has a diagnosis of end stage pulmonary fibrosis/ interstitial lung disease, COPD. He was admitted to the hospital with diagnosis of Pneumonia, COPD exacerbation/ILD exacerbation and sepsis The patient was treated with bronchodilators, oxygen support , antibiotics and steroids. The patients condition continued to deteriorate. The patient eventually was placed on bipap for respiratory support after pulmonary evaluation. The patient sputum cultures were positive for staph aureus. The family who evaluated the patient last night, noted that the patient did not wish to be in a situation like this, and he had spoken to them many times his desire to move on. The patient was DNR in the system, and at the request of family based on patients wishes, he was made comfort care. He shortly after wards Cause of , Pneumonia, staph aureus Interstitial lung disease - years - Additional Data Confirmation of as documented by pronouncing clinician: no pulse, no respirations, no heart sounds, pupils fixed and dilated Family: at bedside Additional persons at bedside: best Attending/PCP notified?: Yes Attending physician: Rakesh Pedroza Was code activated?: No Autopsy requested?: No Advance directives?: Yes Hospice patient?: No
== END 2018-07-22 23:08 | disposition expired | DRG 871 ==
LOC: ED 20:12 → ICU 07-20 02:05
PROVIDERS: ADMIT Internal Medicine; ATTEND Internal Medicine